=== PATIENT | female | born 1960 | race Caucasian/White ===

== ENCOUNTER 2021-10-08 11:43 | Outpatient (REF) | payer OTHER, SELFPAY | END 2021-10-08 11:44 | disposition home or self-care (01) | LOC: HO.LAB 11:43 | PROVIDERS: PCP Internal Medicine; Visit Provider Internal Medicine | DX: Z20.822 Contact with and (suspected) exposure to COVID-19 (principal) | CPT/HCPCS: C9803; U0003; U0005 ==

== ENCOUNTER 2021-11-11 07:33 | Outpatient (REF) | payer OTHER, SELFPAY ==
--- NOTE | ~2021-11-11 | XR_ITS ---
EXAMINATION: XR CHEST CLINICAL INFORMATION: Shortness of breath. COMPARISON: None TECHNIQUE: 2 views of the chest were obtained. FINDINGS: The lungs are clear. The cardiomediastinal silhouette is normal in size. There is no pleural effusion or pneumothorax. No acute osseous abnormality. XR/XR chest 2V IMPRESSION: No acute cardiopulmonary findings.
--- NOTE | 2021-11-11 08:07 | ECG_ITS ---
Test Reason : chest pain Blood Pressure : / mmHG Vent. Rate : 060 BPM Atrial Rate : 060 BPM P-R Int : 114 ms QRS Dur : 086 ms QT Int : 424 ms P-R-T Axes : 000 148 137 degrees QTc Int : 424 ms Normal sinus rhythm Right axis deviation Abnormal ECG No previous ECGs available Referred By: María Soni Electronically Signed By:
[2021-11-11 10:43] LABS: MANUAL DIFF FLAG NO
[2021-11-11 10:48] LABS: Basophils Absolute Auto 0.1 X10*3/uL (0.0-0.2); Eosinophils Absolute Auto 0.2 X10*3/uL (0.0-0.4); Eosinophils Percent Auto 4.3 % (0-4); Hematocrit 39.1 % (37.0-47.0); Hemoglobin 12.8 g/dl (12.0-16.0); Lymphocytes Absolute Auto 1.6 X10*3/uL (1.2-4.9); Lymphocytes Percent Auto 30.6 % (20-40); Mean Corpuscular HGB Conc 32.7 g/dl (31.0-35.0); Mean Corpuscular Hemoglobin 31.2 pg (27.0-33.0); Mean Corpuscular Volume 95.4 fL (80.0-98.0); Mean Platelet Volume 11.2 fL (9.4-12.3); Monocytes Absolute Auto 0.5 X10*3/uL (0.1-1.2); Monocytes Percent Auto 9.7 % (2-11); Neutrophils Absolute Auto 2.8 x10*3/uL (2.0-8.3); Neutrophils Percent Auto 54.4 % (45-73); Platelet Count 313 X10*3/uL (160-400); Red Cell Distribution Width 12.2 % (11.0-16.0); White Blood Count 5.2 X10*3/uL (4.8-10.8)
[2021-11-11 11:24] LABS: Erythrocyte Sedimentation Rate 18 MM/HR (0-20)
[2021-11-11 11:44] LABS: Alanine Aminotransferase 16 U/L (0-31); Alkaline Phosphatase 63 U/L (39-117); Anion Gap 11 (12-20); Aspartate Amino Transferase 19 U/L (5-31); Bilirubin Total 0.5 mg/dL (0.0-1.0); Blood Urea Nitrogen 13 mg/dL (9-16); C Reactive Protein 0.51 mg/dL (< or = 0.50); Calcium 9.1 mg/dL (8.4-10.2); Carbon Dioxide 29 mmol/L (22-29); Chloride 105 mmol/L (96-108); Cholesterol 218 mg/dL; Estimated Glomerular Filt Rate > 60; Glucose Random 82 mg/dL (60-115); HDL Cholesterol 63 mg/dL; LDL Cholesterol Calculated 142 mg/dl; Potassium 4.7 mmol/L (3.3-5.1); Sodium 140 mmol/L (135-145); Total Protein 6.9 g/dL (6.5-8.0); Triglycerides 69 mg/dL
== END 2021-11-11 07:34 | disposition home or self-care (01) ==
LOC: HO.10HDL 07:33
PROVIDERS: Absent Provider Internal Medicine Cardiovascular Disease; PCP Internal Medicine; Visit Provider Internal Medicine
DX: R07.9 Chest pain, unspecified (principal); R06.02 Shortness of breath; E06.3 Autoimmune thyroiditis; M79.7 Fibromyalgia; K21.9 Gastro-esophageal reflux disease without esophagitis
CPT/HCPCS: 36415; 71046; 80053; 80061; 84443; 85025; 85652; 86140; 93005

== ENCOUNTER 2022-09-22 11:04 | Outpatient (REF) | payer OTHER, SELFPAY ==
[2022-09-22 11:17] LABS: MANUAL DIFF FLAG NO
[2022-09-22 11:42] LABS: Basophils Percent Auto 0.6 % (0-2); Eosinophils Percent Auto 0.6 % (0-4); Hematocrit 39.4 % (37.0-47.0); Hemoglobin 12.7 g/dl (12.0-16.0); Imm Gran Abs Auto 0.01 X10*3/uL (0.00-0.03); Imm Gran Pct Auto 0.2 % (0.0-0.4); Lymphocytes Absolute Auto 1.7 X10*3/uL (1.2-4.9); Lymphocytes Percent Auto 32.9 % (20-40); Mean Corpuscular HGB Conc 32.2 g/dl (31.0-35.0); Mean Corpuscular Hemoglobin 29.8 pg (27.0-33.0); Mean Corpuscular Volume 92.5 fL (80.0-98.0); Mean Platelet Volume 11.1 fL (9.4-12.3); Monocytes Absolute Auto 0.5 X10*3/uL (0.1-1.2); Monocytes Percent Auto 8.8 % (2-11); Neutrophils Percent Auto 56.9 % (45-73); Platelet Count 290 X10*3/uL (160-400); Red Blood Count 4.26 X10*6/uL (4.20-5.50); Red Cell Distribution Width 12.4 % (11.0-16.0); White Blood Count 5.2 X10*3/uL (4.8-10.8)
[2022-09-22 12:21] LABS: Erythrocyte Sedimentation Rate 13 MM/HR (0-20)
[2022-09-22 12:40] LABS: Alanine Aminotransferase 15 U/L (0-31); Albumin Level 4.5 g/dL (3.5-5.0); Alkaline Phosphatase 61 U/L (39-117); Anion Gap 12 (12-20); Aspartate Amino Transferase 20 U/L (5-31); Bilirubin Total 0.8 mg/dL (0.0-1.0); Blood Urea Nitrogen 17 mg/dL (9-16); Calcium 9.1 mg/dL (8.4-10.2); Carbon Dioxide 29 mmol/L (22-29); Chloride 105 mmol/L (96-108); Cholesterol 209 mg/dL; Estimated Glomerular Filt Rate > 60; Free T4 (Free Thyroxine) 1.09 ng/dL (0.71-1.85); Glucose Fasting 79 mg/dL (60-99); HDL Cholesterol 75 mg/dL; LDL Cholesterol Calculated 123 mg/dl; Potassium 4.8 mmol/L (3.3-5.1); Sodium 141 mmol/L (135-145); Thyroid Stimulating Hormone 1.74 uIU/mL (0.32-4.0); Triglycerides 57 mg/dL; Vitamin D 25-OH Total 23.9 ng/mL (>30)
[2022-09-22 13:02] LABS: Folate 7.5 ng/mL (> or = 4.0); Vitamin B12 612 pg/mL (200-900)
[2022-09-23 09:43] LABS: Thyroid Peroxidase Antibodies 1 IU/mL (<9)
[2022-09-23 14:23] LABS: CRP High Sensitivity 6.6 mg/L
[2022-09-23 20:53] LABS: Thyroglobulin Antibodies 1 IU/mL (< or = 1)
== END 2022-09-22 11:05 | disposition home or self-care (01) ==
LOC: HO.LAB 11:04
PROVIDERS: PCP Internal Medicine; Visit Provider Internal Medicine
DX: R20.0 Anesthesia of skin (principal); E55.9 Vitamin D deficiency, unspecified; R25.2 Cramp and spasm; K21.9 Gastro-esophageal reflux disease without esophagitis; E06.3 Autoimmune thyroiditis; E78.5 Hyperlipidemia, unspecified; R07.9 Chest pain, unspecified
CPT/HCPCS: 36415; 80053; 80061; 82306; 82607; 82746; 83735; 84439; 84443; 85025; 85652; 86141; 86376; 86800

== ENCOUNTER → 2022-11-26 14:00 | Outpatient (BNVA) | payer OTHER, SELFPAY | PROVIDERS: PCP Internal Medicine; Visit Provider Nurse Practitioner Family | DX: Z13.89 Encounter for screening for other disorder (principal) ==

== ENCOUNTER 2022-11-30 12:04 | Outpatient (REF) | payer OTHER, SELFPAY ==
[2022-11-30 13:33] LABS: Iron 75 mcg/dL (30-160); Percent Iron Saturation 30 % (15-50); Total Iron Binding Capacity 250 mcg/dL (228-428); Unsaturated Iron Binding 175 ug/dL
[2022-11-30 13:48] LABS: Ferritin 104 ng/mL (10-250)
== END 2022-11-30 12:05 | disposition home or self-care (01) ==
LOC: HO.LAB 12:04
PROVIDERS: PCP Internal Medicine; Visit Provider Nurse Practitioner Family
DX: D64.9 Anemia, unspecified (principal)
CPT/HCPCS: 36415; 82728; 83540

== ENCOUNTER 2022-12-01 08:44 | Outpatient (REF) | payer OTHER, SELFPAY ==
--- NOTE | 2022-12-01 08:45 | EMG_ITS ---
Please see scanned EMG / Nerve Conduction Report. MTDD
--- NOTE | 2022-12-01 08:47 | CA_ITS ---
Acquisition Time: 2022-12-01 09:16:36 Total Exercise Time: 00:09:57 Test Indications: CHESTB PAIN Medications: LINZESS CLORAZAPAM DEXTROAMPHETAMINE Protocol: DEIRDRE Max HR: 151 BPM 94% of Pred: 160 BPM Max BP: 154/068 mmHG Max Work Load: 11.6 METS Exercise stress test with exercise 9 min 57 sec of Deirdre protocol, achieving 94% MPHR, without angnal symptoms, with isolated PVCs, few ventricular cuplets and short run of ventricular bigeminy all noted in recovery, with normotensive response to exercise, without EKG changes meeting criteria for ischemia. Test reviewed with Dr Vásquez. Referred By: María Soni Overread By: AMADO LIU
== END 2022-12-01 08:45 | disposition home or self-care (01) ==
LOC: HO.NEURO 08:44
PROVIDERS: PCP Internal Medicine; Visit Provider Internal Medicine
DX: R20.0 Anesthesia of skin (principal); R07.9 Chest pain, unspecified
CPT/HCPCS: 93017; 95885; 95913

== ENCOUNTER 2022-12-16 15:36 | Outpatient (REF) | payer OTHER, SELFPAY ==
--- NOTE | ~2022-12-16 | XR_ITS ---
EXAMINATION: XR CHEST CLINICAL INFORMATION: Reason for Exam J06.9 - Acute upper respiratory infection, unspecified COMPARISON: Chest radiograph 11/11/2021 TECHNIQUE: 2 views of the chest FINDINGS: Clear lungs. No pneumothorax or pleural effusion. Normal cardiomediastinal silhouette. XR/XR chest 2V IMPRESSION: * Clear lungs.
[2022-12-16 16:44] LABS: Influenza A PCR NEGATIVE (Negative); Influenza B PCR NEGATIVE (Negative); Resp Syncy Virus RNA Qual PCR NEGATIVE (Negative); SARS COV2 PCR INHOUSE NEGATIVE (Negative)
== END 2022-12-16 15:37 | disposition home or self-care (01) ==
LOC: HO.XRAY 15:36
PROVIDERS: PCP Internal Medicine; Visit Provider Internal Medicine
DX: J06.9 Acute upper respiratory infection, unspecified (principal); R09.89 Other specified symptoms and signs involving the circulatory and respiratory systems; Z20.822 Contact with and (suspected) exposure to COVID-19
CPT/HCPCS: 0241U; 71046

== ENCOUNTER 2023-01-06 10:07 | Outpatient (REF) | payer OTHER, SELFPAY ==
--- NOTE | 2023-01-06 10:06 | EMG_ITS ---
Bilateral tibial and peroneal motor studies were performed. Bilateral superficial peroneal and sural sensory studies were performed. Tibial H reflexes were obtained, and needle examination was performed. 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 MD CORINA Rolle/BLAINE / [id number]
== END 2023-01-06 10:08 | disposition home or self-care (01) ==
LOC: HO.NEURO 10:07
PROVIDERS: Visit Provider Internal Medicine
DX: R20.0 Anesthesia of skin (principal)
CPT/HCPCS: 95886; 95911

== ENCOUNTER 2023-02-07 10:02 | Outpatient (REF) | payer OTHER, SELFPAY ==
[2023-02-07 12:55] LABS: Estimated Average Glucose 94 mg/dL; Hemoglobin A1c % 4.9 %
[2023-02-07 13:29] LABS: Erythrocyte Sedimentation Rate 14 MM/HR (0-20)
[2023-02-08 12:09] LABS: Prot Elec - Alpha1 0.3 g/dL (0.2-0.3); Prot Elec - Alpha2 0.8 g/dL (0.5-0.9); Prot Elec - Beta 1 0.4 g/dL (0.4-0.6); Prot Elec - Beta 2 0.4 g/dL (0.2-0.5); Prot Elec - Gamma 1.1 g/dL (0.8-1.7)
[2023-02-08 13:24] LABS: Anti Nuclear Antibody Screen NEGATIVE (NEGATIVE)
[2023-02-10 18:29] LABS: Glutamic acid decarboxylase Ab <5 IU/mL (<5)
== END 2023-02-07 10:03 | disposition home or self-care (01) ==
LOC: HO.LAB 10:02
PROVIDERS: PCP Internal Medicine; Visit Provider Nurse Practitioner Family
DX: G60.8 Other hereditary and idiopathic neuropathies (principal); R20.2 Paresthesia of skin; F90.9 Attention-deficit hyperactivity disorder, unspecified type; G93.5 Compression of brain; R25.2 Cramp and spasm; Z78.0 Asymptomatic menopausal state; Z79.899 Other long term (current) drug therapy
CPT/HCPCS: 36415; 83036; 84165; 85652; 86038; 86039; 86341

== ENCOUNTER 2023-02-10 07:35 | Outpatient (REF) | payer OTHER, SELFPAY ==
[2023-02-15 14:49] LABS: Creatinine, 24Hr Urine 0.84 g/24 h (0.50-2.15); PEU-PROT/CRE Ratio mg/mg 0.095 (<0.150); PEU24-Albumin Urine 100 %; PEU24-Alpha 1 Globulin 0 %; PEU24-Alpha 2 Globulin 0 %; PEU24-Beta Globulin 0 %; PEU24-Gamma Globulin 0 %; Total Protein 24Hr Urine 80 mg/24 h (<150); Total Protein/Creat Ratio 24h 95 mg/g creat (<150)
== END 2023-02-10 07:36 | disposition home or self-care (01) ==
LOC: HO.LNP 07:35
PROVIDERS: Visit Provider Nurse Practitioner Family
DX: G60.8 Other hereditary and idiopathic neuropathies (principal); R25.2 Cramp and spasm; R20.2 Paresthesia of skin
CPT/HCPCS: 82570; 84156; 84166

== ENCOUNTER 2023-05-11 09:42 | Outpatient (AMB) | payer OTHER, SELFPAY ==
[2023-05-11 09:43] VITALS: BP 138/78; PULSE 81; O2SAT 99; BMI 25.6
--- NOTE | 2023-05-11 09:43 | A.OFFVIS_ITS ---
Intake Vital Signs 05/11/23 09:43 Height 5 ft 4 in Weight 149 lb 4 oz BMI 25.6 BP 138/78 Blood Pressure Location Rt brachial Position Sitting Pulse 81 Pulse Source Pulse Oximeter Pulse Oximetry (%) 99 Oxygen Delivery Method Room Air Intake Visit Reasons: 3m follow up - Confirmed Intake Note: Pt presents for a f/u. Pt states things are the same. Pt states The spasms or cramps are worse and keep me up at night and now have them in the daytime Pt is questioning swallowing issues, she doesn't think there is a problem but she is wondering if It is normal? she says i have vertigo but I don't understand that, kind of curious about that. wanted to talk about some of the causes and would like to talk about the treatments. Pt has alot of questions. Is it progressive, is it curable? Pattern Changer And Repairer Required: No Allergies cyclobenzaprine Allergy (Intermediate, Verified 05/11/23 09:50) mental status change Penicillins Allergy (Intermediate, Verified 05/11/23 09:50) upset stomach, headaches mold Allergy (Unknown, Verified 05/11/23 09:50) Unknown Yeast Allergy (Unknown, Verified 05/11/23 09:50) Unknown enviromental Allergy (Mild, Uncoded 05/11/23 09:50) mental status chage dairy Allergy (Unknown, Uncoded 05/11/23 09:50) Unknown Medication List - Last Reconciled 05/11/23 by Geeta Hinds, METER INSTALLER AND REMOVER dextroamphetamine-amphetamine 30 mg (Adderall) 30 mg PO DAILY levalbuterol HCl (Xopenex) 0.31 mg inhalation Q8H HPI HPI Comments History of Present Illness Details 63-yr-old female presents for f/u visit. She reports she is having increased muscle spasms/cramps. This happens in her legs, toes, hands, abdomen. This is most noticeable when laying in bed or sitting still. 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 She may start to see stars in the shower- can be lightheaded. Endorses that sometimes she does not realize how hot the shower is. She continues to have episodes of dizziness and headaches. 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 BUE EMG/NCS- normal. In-lab PSG- [facility] 05/07- AHI 3.6/hr and O2 parth 90%, minimal PLMS PFSH Medical History ADHD Autoimmune thyroiditis Chest pain Chronic GERD Chronic headaches Fibromyalgia JAISON (generalized anxiety disorder) History of squamous cell carcinoma Mild asthma MVP (mitral valve prolapse) Neck pain Short of breath on exertion TMJ (dislocation of temporomandibular joint) Surgical History H/O colonoscopy History of partial hysterectomy History of squamous cell carcinoma History of tubal ligation Family History Father Heart attack Hypercholesteremia Hypertension CHF (congestive heart failure) Mother Hypothyroidism Heart attack Tuberculosis Bladder cancer Breast cancer Pleurisy Sister Hypothyroidism Hypercholesteremia Spinal stenosis Arthritis Asthma Brother Hyperthyroidism Hypertension Hypercholesteremia Sister Hypercholesteremia Daughter Hypertension Hypercholesteremia ADHD Anxiety Myotonia congenita Son Myotonia congenita Son Myotonia congenita Social History (Updated 05/11/23 @ 09:54 by Gwen Keating CMA) Housing: House Alcohol intake: current Alcohol intake frequency: a few times a month Patient Tobacco Use Status: Former Tobacco user Quit Date: 1989 Tobacco use type: Cigarette e-Cigarette/Vaping Use: Never Used Second Hand Smoke Exposure: No service: No Current occupational status: retired Cognitive needs: No Hearing needs: No Vision needs: Yes Review of Systems Const All systems reviewed & are unremarkable except as noted in HPI and below Physical Exam Vital Signs: Last Vital Signs Pulse 81 05/11/23 09:43 BP 138/78 05/11/23 09:43 Pulse Ox 99 05/11/23 09:43 Oxygen Delivery Method Room Air 05/11/23 09:43 BMI result Body Mass Index 25.6 Const General: cooperative and no acute distress Orientation/consciousness: patient oriented x3 HEENT Head: Yes normocephalic Resp Effort & Inspection: normal respiratory effort and able to speak in complete sentences Neuro General: patient oriented x3, gait normal and CN's II-XI intact bilaterally Cognition (Neuro): normal cognition Motor exam (neuro): 5/5 motor strength present throughout Psych Appearance: grossly normal Mental Status: mental status grossly normal Speech and movement: Normal speech and movement present Affect: normal affect Attitude: cooperative Thought process: Normal thought process present Thought content: Normal thought content present Insight: Good insight present (Psych) Judgement: Good judgement present (Psych) Assessment & Plan Assessment & Plan (1) Muscle cramp: Code(s): R25.2 - Cramp and spasm (2) Peripheral sensory-motor axonal polyneuropathy: Code(s): G60.8 - Other hereditary and idiopathic neuropathies (3) Dizziness: Code(s): R42 - Dizziness and giddiness (4) Headache: Code(s): R51.9 - Headache, unspecified Plan Reviewed neuropathy dx- reviewed lab work-up results unremarkable. Trial Magnesium 400mg qhs- monitor effect on cramps, restlessness. May try OTC tx's- such as small amts pickle juice. I would avoid Mexieitine at this point- this medication carries significant CV black box warning. Pt advised to try vestibular tx- she will reach out to her usual PT provider to see if they a a PT specializing in vestibular tx. Drink a full glass of water beofre showers and avoid hot showers. Future considerations- iron supplementation, TCAs, dopamine agonist, initiating headcahe tx, referal to neuropathy clinic. Orders: Orders PT Evaluation and Treatment Today R42 - Dizziness and giddiness Medications: New magnesium oxide may hold for loose stools 400 mg PO BEDTIME 30 tabs 6RF 30 days Coding Level of Care Code Est Pt Level 4 (21106) Diagnoses Muscle cramp R25.2 Peripheral sensory-motor axonal polyneuropathy G60.8 Dizziness R42 Headache R51.9
== END 2023-05-11 10:42 | disposition home or self-care (01) ==
PROVIDERS: Visit Provider Nurse Practitioner Family
DX: R25.2 Cramp and spasm (principal); G60.8 Other hereditary and idiopathic neuropathies; R42 Dizziness and giddiness; R51.9 Headache, unspecified
CPT/HCPCS: 99214

== ENCOUNTER → 2023-05-11 09:42 | Outpatient (BNVA) | payer OTHER, SELFPAY | PROVIDERS: Visit Provider Nurse Practitioner Family ==

== ENCOUNTER 2023-08-23 11:35 | Outpatient (AMB) | payer OTHER, SELFPAY ==
--- NOTE | 2023-08-23 11:34 | A.OFFVIS_ITS ---
Intake Vital Signs 08/23/23 11:35 Height 5 ft 4 in Weight 151 lb BMI 25.9 BP 138/88 Blood Pressure Location Rt brachial Position Sitting Intake Visit Reasons: 3m follow up anesthesia of skin-LVM Intake Note: Patient presents for 3 month follow up. Patient states when I was at PT my whole chin went totally numb,I'm seeing stars more brighter and now I see them in front of me, I'm also having neck issues. Allergies cyclobenzaprine Allergy (Intermediate, Verified 08/23/23 11:40) mental status change Penicillins Allergy (Intermediate, Verified 08/23/23 11:40) upset stomach, headaches mold Allergy (Unknown, Verified 08/23/23 11:40) Unknown Yeast Allergy (Unknown, Verified 08/23/23 11:40) Unknown enviromental Allergy (Mild, Uncoded 08/23/23 11:40) mental status chage dairy Allergy (Unknown, Uncoded 08/23/23 11:40) Unknown Medication List - Last Reconciled 08/23/23 by KELLE Cervantes dextroamphetamine-amphetamine 30 mg (Adderall) 30 mg PO DAILY levalbuterol HCl (Xopenex) 0.31 mg inhalation Q8H magnesium oxide 400 mg PO BEDTIME 30 days HPI HPI Comments History of Present Illness Details 63-yr-old female presents for f/u visit. Today, pt reports that she is having increased head discomfort. She reports her head feels full. She feels her frontal and temporal region feel full and painful to touch. She has difficulty quantifying her headaches. She has had a bout that was more severe. She is seeing more aura- seeing stars in front of her. Today, this happened when showering, but she denies any associated lightheadedness. The stars are tr iggered by turning her neck, but only when in the shower. The stars are not a/w the headache. Pt states she had an episode where all of a sudden her jaw (maybe left sided) went numb. She has had milder episodes of left jaw numbness- like she has Novocaine that is wearing off. Her tongue and mouth are often numb. She feels more forgetful, sometimes spaces out. She is compliant w/ Adderral, which is helpful. [facility] Medical History (Updated 08/28/23 @ 22:52 by KELLE Cervantes) MVP (mitral valve prolapse) Chronic headaches Neck pain Short of breath on exertion Chest pain History of squamous cell carcinoma ADHD TMJ (dislocation of temporomandibular joint) Fibromyalgia Mild asthma JAISON (generalized anxiety disorder) Chronic GERD Surgical History H/O colonoscopy History of squamous cell carcinoma History of partial hysterectomy History of tubal ligation Family History Father Heart attack Hypercholesteremia Hypertension CHF (congestive heart failure) Mother Hypothyroidism Heart attack Tuberculosis Bladder cancer Breast cancer Pleurisy Sister Hypothyroidism Hypercholesteremia Spinal stenosis Arthritis Asthma Brother Hyperthyroidism Hypertension Hypercholesteremia Sister Hypercholesteremia Daughter Hypertension Hypercholesteremia ADHD Anxiety Myotonia congenita Son Myotonia congenita Son Myotonia congenita Social History Housing: House Alcohol intake: current Alcohol intake frequency: a few times a month Patient Tobacco Use Status: Former Tobacco user Quit Date: 1989 Tobacco use type: Cigarette e-Cigarette/Vaping Use: Never Used Second Hand Smoke Exposure: No service: No Current occupational status: retired Cognitive needs: No Hearing needs: No Vision needs: Yes Review of Systems Const All systems reviewed & are unremarkable except as noted in HPI and below Physical Exam Vital Signs: Last Vital Signs BP 138/88 08/23/23 11:35 BMI result Body Mass Index 25.9 Const General: cooperative and no acute distress Orientation/consciousness: patient oriented x3 HEENT Head: Yes normocephalic Resp Effort & Inspection: normal respiratory effort and able to speak in complete sentences Neuro General: patient oriented x3, gait normal and CN's II-XI intact bilaterally Cognition (Neuro): normal cognition Motor exam (neuro): 5/5 motor strength present throughout Psych Appearance: grossly normal Mental Status: mental status grossly normal Speech and movement: Normal speech and movement present Affect: normal affect Attitude: cooperative Thought process: Normal thought process present Thought content: Normal thought content present Insight: Good insight present (Psych) Judgement: Good judgement present (Psych) Assessment & Plan Assessment & Plan (1) Visual aura: Code(s): H53.9 - Unspecified visual disturbance (2) Headache: Code(s): R51.9 - Headache, unspecified (3) Dizziness: Code(s): R42 - Dizziness and giddiness (4) Paresthesia: Code(s): R20.2 - Paresthesia of skin Plan Pt advised to undergo head/neck CTA- to assess for cervical and intracranial arterial etiologies of pt's s/s of lightheadedness, dizziness, and seeing stars triggered by cervical rotation and especially triggered when taking a shower. Check ESR, CRP, TSH today Trial Sumatriptan 50mg prn. F/u in 3-4 months or sooner prn Addendum: 08/23/23: CRP- 8.27 H ESR- 6 NL TSH- 2.26 NL Labs reviewed, will check lipid panel. Orders: Orders Erythrocyte Sedimentation Rate 08/23/23 H53.9 - Unspecified visual disturbance, R20.2 - Paresthesia of skin, R51.9 - Headache, unspecified Comprehensive Met. Panel Today R42 - Dizziness and giddiness, R51.9 - Headache, unspecified, R79.82 - Elevated C-reactive protein (CRP) CT angio head neck 08/23/23 H53.9 - Unspecified visual disturbance, R20.2 - Paresthesia of skin, R42 - Dizziness and giddiness, R51.9 - Headache, unspecified TSH reflex Free T4 08/23/23 E06.3 - Autoimmune thyroiditis CRP High Sensitivity 08/23/23 H53.9 - Unspecified visual disturbance, R20.2 - Paresthesia of skin, R51.9 - Headache, unspecified Complete Blood Count Auto Diff Today R42 - Dizziness and giddiness, R51.9 - Headache, unspecified, R79.82 - Elevated C-reactive protein (CRP) Lipid Panel with Reflex Today R42 - Dizziness and giddiness, R51.9 - Headache, unspecified, R79.82 - Elevated C-reactive protein (CRP) Medications: New sumatriptan succinate take 1 tab at onset of headache; if no relief may repeat 1 tab after at least 2 hrs; max = 4 tabs/24 hr orally PRN; 30 days 12 tabs 3RF migraine headache Coding Level of Care Code Est Pt Level 4 (86022) Diagnoses Visual aura H53.9 Headache R51.9 Dizziness R42 Paresthesia R20.2
[2023-08-23 11:35] VITALS: BP 138/88; BMI 25.9
== END 2023-08-23 12:23 | disposition home or self-care (01) ==
PROVIDERS: PCP Internal Medicine; Visit Provider Nurse Practitioner Family
DX: H53.9 Unspecified visual disturbance (principal); R51.9 Headache, unspecified; R42 Dizziness and giddiness; R20.2 Paresthesia of skin
CPT/HCPCS: 99214

== ENCOUNTER → 2023-08-23 11:35 | Outpatient (BNVA) | payer OTHER, SELFPAY | PROVIDERS: PCP Internal Medicine; Visit Provider Nurse Practitioner Family ==

== ENCOUNTER 2023-09-12 09:14 | Outpatient (REF) | payer OTHER, SELFPAY ==
[2023-09-12 09:39] LABS: MANUAL DIFF FLAG NO
[2023-09-12 10:28] LABS: Basophils Percent Auto 0.8 % (0-2); Eosinophils Absolute Auto 0.1 X10*3/uL (0.0-0.4); Eosinophils Percent Auto 1.5 % (0-4); Hematocrit 41.3 % (37.0-47.0); Hemoglobin 13.4 g/dl (12.0-16.0); Imm Gran Abs Auto 0.01 X10*3/uL (0.00-0.03); Imm Gran Pct Auto 0.2 % (0.0-0.4); Lymphocytes Absolute Auto 1.9 X10*3/uL (1.2-4.9); Lymphocytes Percent Auto 35.2 % (20-40); Mean Corpuscular HGB Conc 32.4 g/dl (31.0-35.0); Mean Corpuscular Hemoglobin 30.5 pg (27.0-33.0); Mean Corpuscular Volume 94.1 fL (80.0-98.0); Mean Platelet Volume 10.7 fL (9.4-12.3); Monocytes Absolute Auto 0.4 X10*3/uL (0.1-1.2); Monocytes Percent Auto 8.2 % (2-11); Neutrophils Absolute Auto 2.8 x10*3/uL (2.0-8.3); Neutrophils Percent Auto 54.1 % (45-73); Platelet Count 296 X10*3/uL (160-400); Red Blood Count 4.39 X10*6/uL (4.20-5.50); Red Cell Distribution Width 12.6 % (11.0-16.0); White Blood Count 5.3 X10*3/uL (4.8-10.8)
[2023-09-12 11:16] LABS: Cholesterol 203 mg/dL (<200); HDL Cholesterol 80 mg/dL (>40); LDL Cholesterol Calculated 113 mg/dL (<100); Triglycerides 52 mg/dL (<150)
[2023-09-12 11:20] LABS: Erythrocyte Sedimentation Rate 10 MM/HR (0-20)
[2023-09-12 11:25] LABS: Alanine Aminotransferase 19 U/L (0-31); Albumin Level 4.4 g/dL (3.5-5.0); Alkaline Phosphatase 58 U/L (39-117); Anion Gap 12 (12-20); Aspartate Amino Transferase 20 U/L (5-31); Bilirubin Total 0.5 mg/dL (0.0-1.0); Blood Urea Nitrogen 16 mg/dL (9-16); Carbon Dioxide 27 mmol/L (22-29); Chloride 105 mmol/L (96-108); Estimated Glomerular Filt Rate > 60; Glucose Random 85 mg/dL (60-115); Potassium 4.3 mmol/L (3.3-5.1); Sodium 140 mmol/L (135-145); Total Protein 7.4 g/dL (6.5-8.0)
[2023-09-12 11:29] LABS: TSH reflex Free T4 2.11 uIU/mL (0.32-4.0)
[2023-09-12 11:44] LABS: Reflex LDLD? No
[2023-09-13 17:18] LABS: CRP High Sensitivity 5.9 mg/L
[2023-09-15 18:58] LABS: Acetylcholine Recept. Blocking <15 (<15)
[2023-09-16 03:28] LABS: Acetylcholine Receptor Binding <0.30 nmol/L
[2023-09-21 17:39] LABS: Acetylcholine Recep Modulating 30
== END 2023-09-12 09:15 | disposition home or self-care (01) ==
LOC: HO.LAB 09:14
PROVIDERS: PCP Internal Medicine; Visit Provider Nurse Practitioner Family
DX: R51.9 Headache, unspecified (principal); R42 Dizziness and giddiness; R79.82 Elevated C-reactive protein (CRP); H53.9 Unspecified visual disturbance; R20.2 Paresthesia of skin; R53.1 Weakness; R06.02 Shortness of breath; E06.3 Autoimmune thyroiditis
CPT/HCPCS: 36415; 80053; 80061; 83519; 84443; 85025; 85652; 86141

== ENCOUNTER 2023-09-29 16:09 | Outpatient (REF) | payer OTHER, SELFPAY ==
[2023-09-29 18:18] LABS: Magnesium 2.2 mg/dL (1.6-2.6)
== END 2023-09-29 16:10 | disposition home or self-care (01) ==
LOC: HO.LAB 16:09
PROVIDERS: Visit Provider Nurse Practitioner Family
DX: R25.2 Cramp and spasm (principal)
CPT/HCPCS: 36415; 82550; 83735

== ENCOUNTER 2023-10-05 08:04 | Outpatient (REF) | payer OTHER, SELFPAY ==
--- NOTE | ~2023-10-05 | CT_ITS ---
EXAMINATION: CT angio head neck CLINICAL INFORMATION: Dizziness. COMPARISON: No relevant prior imaging. TECHNIQUE: Head [employer] images were obtained. A CT angiogram of the head and neck was performed in the arterial phase after the intravenous administration of 70 mL Omnipaque 350. Pre and delayed postcontrast images of the head were also obtained. 3D images were processed on an independent workstation under concurrent supervision. Arterial stenoses are measured in accordance with NASCET criteria or similar method if applicable. This CT examination was performed using dose optimization techniques as appropriate, including one or more of the following: Automated exposure control, iterative reconstruction, and adjustment of technique factors (mA and/or kVp) according to patient size (this includes techniques or standardized protocols for targeted exams where dose is matched to indication/reason for exam). Fleischner Society criteria for the followup of incidental pulmonary nodules was implemented if appropriate. Total exam dose-length product 2054 mGy-cm FINDINGS: Head: There is no acute intracranial hemorrhage or abnormal extra-axial collection. Postcontrast images reveal no abnormal intracranial mass or enhancement. No intracranial mass effect or midline shift. Lateral and third ventricles are normal. No hydrocephalus. Potts-white matter differentiation is preserved and there is no evidence of acute territorial infarct. The calvarium and skull base are intact. Mastoid air cells and middle ear cavities are well aerated. No active paranasal sinus disease. CT angiogram neck: The aortic arch apex is normal. Origins of major aortic branches are widely patent. Common carotid arteries and carotid bifurcations are normal. There is a slightly deviated irregular contour involving the right internal carotid artery along its midportion best visualized on axial image 286 of 562 series 13. Intracranial internal carotid arteries are otherwise patent. The cervical segments of the vertebral arteries are patent. CT angiogram head: Intracranial internal carotid arteries are normal. The intradural vertebral artery segments and basilar artery are normal. Anterior, middle, and posterior cerebral complexes are normal. No intracranial large vessel occlusion. No identifiable aneurysm or high flow vascular lesion. The timing of the contrast injection provides adequate opacification of the dural venous sinuses which are patent. Other: Soft tissues of the neck including the thyroid gland are normal. There is pleural-parenchymal scarring at the apices of both lungs. There are a few small nonspecific pulmonary nodule at the apex of the right lung, the largest of which measures 3.5 mm in diameter best visualized on axial image 488 of series 13. Grossly no pathologically enlarged cervical lymph nodes. No acute osseous finding. Specifically no worrisome lytic or blastic osseous lesion. CT/CT angio head neck IMPRESSION: There is a slightly deviated and irregular contour involving the right internal carotid artery along its midportion. This finding may represent a manifestation of fibromuscular dysplasia. Otherwise unremarkable CT angiogram of the head and neck. No stenosis of the cervical carotid or vertebral arteries. No intracranial large vessel occlusion. No evidence of acute territorial infarct or hemorrhage. No abnormal intracranial mass or enhancement. There are a few small nonspecific pulmonary nodules at the apex of the right lung, the largest of which measures 3.5 mm in diameter. According to the UPDATED 2017 Fleischner Society recommendations, the advised follow-up imaging for nodules <6mm in the upper lobes is not necessarily required in low-risk patients. In high-risk patients with a nodule in the upper lobe and/or demonstrating suspicious morphology, an optional CT follow-up at 12 months may be obtained. If stable at 12 months, no further follow-up is recommended.
[2023-10-05] MEDS: iohexoL 350 MG/ML 100 ML INFUS..BTL IV (09:04)
== END 2023-10-05 08:05 | disposition home or self-care (01) ==
LOC: HO.CT 08:04
PROVIDERS: PCP Internal Medicine; Visit Provider Nurse Practitioner Family
DX: R42 Dizziness and giddiness (principal); R51.9 Headache, unspecified; R20.2 Paresthesia of skin; H53.9 Unspecified visual disturbance
CPT/HCPCS: 70496; 70498; Q9967

== ENCOUNTER 2023-10-07 09:06 | Outpatient (REF) | payer OTHER, SELFPAY ==
--- NOTE | 2023-10-07 09:08 | EMG_ITS ---
Chief complaint: Chronic headaches, neck pain/stiffness, hand numbness, fatigue Reason for referral: Evaluate for neuropathy Previous EMG bilateral upper extremities done by Dr. Rivas last November 2022 was normal. Referred by: Tracie Hinds NP Procedure done: Bilateral upper extremities NCS/EMG Precautions and/or limitations: None The limb temperature was monitored continuously and remained between 32-36 degrees C during the performance of the NCS. Nerve Conduction Studies Anti Sensory Summary Table ?Stim Site NR Onset (ms) Norm Onset (ms) Peak (ms) Norm Peak (ms) O-P Amp (?V) Norm O-P Amp Site1 Site2 Delta-0 (ms) Dist (cm) Rony (m/s) Norm Rony (m/s) Left Median Anti Sensory (2nd Digit) Wrist ? 2.7 3.6 <3.6 51.6 >10 Wrist 2nd Digit 2.7 14.0 52 Right Median Anti Sensory (2nd Digit) Wrist ? 2.9 3.6 <3.6 48.4 >10 Wrist 2nd Digit 2.9 14.0 48 Right Radial Anti Sensory (Thumb) Forearm ? 1.5 2.1 <3.1 37.9 Forearm Thumb 1.5 0.0 Left Ulnar Anti Sensory (5th Digit) Wrist ? 2.2 3.2 <3.7 41.0 >15.0 Wrist 5th Digit 2.2 14.0 64 Right Ulnar Anti Sensory (5th Digit) Wrist ? 2.7 3.7 <3.7 32.3 >15.0 Wrist 5th Digit 2.7 14.0 52 Motor Summary Table ?Stim Site NR Onset (ms) Norm Onset (ms) O-P Amp (mV) Norm O-P Amp iAmp (mV) Amp (1st) (%) Site1 Site2 Delta-0 (ms) Dist (cm) Rony (m/s) Norm Rony (m/s) Left Median Motor (Abd Poll Brev) Wrist ? 3.4 <3.9 10.7 >4.5 13.0 100.0 Elbow Wrist 3.2 19.0 59 >45 Elbow ? 6.6 10.4 12.8 97.2 Right Median Motor (Abd Poll Brev) Wrist ? 3.7 <3.9 10.6 >4.5 13.4 100.0 Elbow Wrist 3.6 20.0 56 >45 Elbow ? 7.3 11.8 14.6 111.3 Left Ulnar Motor (Abd Dig Minimi) Wrist ? 3.0 <3.0 6.9 >5 8.7 100.0 B Elbow Wrist 3.0 18.0 60 >45 B Elbow ? 6.0 7.2 8.9 104.3 A Elbow B Elbow 1.3 10.0 77 >45 A Elbow ? 7.3 6.7 8.4 97.1 Right Ulnar Motor (Abd Dig Minimi) Wrist ? 2.4 <3.0 10.7 >5 11.9 100.0 B Elbow Wrist 3.5 19.0 54 >45 B Elbow ? 5.9 10.3 11.5 96.3 A Elbow B Elbow 1.4 10.0 71 >45 A Elbow ? 7.3 10.1 11.2 94.4 EMG ?Side Muscle Nerve Root Ins Act Fibs Psw Amp Dur Poly Recrt Int Pat Comment Right 1stDorInt Ulnar C8-T1 Nml Nml Nml Nml Nml 0 Nml Complete Right FlexCarRad Median C6-7 Nml Nml Nml Nml Nml 0 Nml Complete Right Biceps Musculocut C5-6 Nml Nml Nml Nml Nml 0 Nml Complete Right Triceps Radial C6-7-8 Nml Nml Nml Nml Nml 0 Nml Complete Right Deltoid Axillary C5-6 Nml Nml Nml Nml Nml 0 Nml Complete Left 1stDorInt Ulnar C8-T1 Nml Nml Nml Nml Nml 0 Nml Complete Left FlexCarRad Median C6-7 Nml Nml Nml Nml Nml 0 Nml Complete Left Biceps Musculocut C5-6 Nml Nml Nml Nml Nml 0 Nml Complete Left Triceps Radial C6-7-8 Nml Nml Nml Nml Nml 0 Nml Complete Left Deltoid Axillary C5-6 Nml Nml Nml Nml Nml 0 Nml Complete Paraspinal EMG ?Side Muscle Nerve Root Ins Act Fibs Psw Comment Right Cervical Upper Rami Nml Nml Nml Right Cervical Mid Rami Nml Nml Nml Right Cervical Lower Rami Nml Nml Nml Left Cervical Upper Rami Nml Nml Nml Left Cervical Mid Rami Nml Nml Nml Left Cervical Lower Rami Nml Nml Nml FINDINGS: All motor and sensory nerves tested showed normal latencies, amplitudes and conduction velocities. Concentric needle EMG was performed in selected muscles of the bilateral upper extremities and cervical paraspinals. Study did not reveal signs of electric abnormalities as shown in the table below. IMPRESSION: 1. This is a normal study. 2. There is no electrodiagnostic evidence for median neuropathy, ulnar neuropathy, brachial plexopathy, or cervical radiculopathy. Thank you for your kind referral. Munira Roberts MD, KETAN Board Certified, [place] [employer] and [employer] (ABPMR) Board Certified, [place] Board of Electrodiagnostic Medicine (ABEM) CODIN 60028 x 2 MTDD
== END 2023-10-07 09:07 | disposition home or self-care (01) ==
LOC: HO.NEURO 09:06
PROVIDERS: PCP Internal Medicine; Visit Provider Nurse Practitioner Family
DX: R20.2 Paresthesia of skin (principal); G60.8 Other hereditary and idiopathic neuropathies; M62.81 Muscle weakness (generalized)
CPT/HCPCS: 95886; 95911

== ENCOUNTER → 2023-10-07 09:08 | Outpatient (BNV) | payer OTHER, SELFPAY | PROVIDERS: PCP Internal Medicine; Visit Provider Physical Medicine & Rehabilitation | DX: M54.2 Cervicalgia (principal); R20.0 Anesthesia of skin | CPT/HCPCS: 95886; 95911 ==

== ENCOUNTER 2023-12-15 08:47 | Outpatient (AMB) | payer OTHER, SELFPAY ==
--- NOTE | 2023-12-15 08:48 | MHC.OFFVIS ---
Intake Intake Visit Reasons: 3 mnts f/u appt-Confirmed Intake Note: Patient following up no concerns just bloating and weight gain Allergies cyclobenzaprine Allergy (Intermediate, Verified 12/15/23 08:48) mental status change Penicillins Allergy (Intermediate, Verified 12/15/23 08:48) upset stomach, headaches mold Allergy (Unknown, Verified 12/15/23 08:48) Unknown Yeast Allergy (Unknown, Verified 12/15/23 08:48) Unknown enviromental Allergy (Mild, Uncoded 12/15/23 08:48) mental status chage dairy Allergy (Unknown, Uncoded 12/15/23 08:48) Unknown Medication List - Last Reconciled 12/15/23 by KELLE Cervantes dextroamphetamine-amphetamine 30 mg (Adderall) 30 mg PO DAILY levalbuterol HCl (Xopenex) 0.31 mg inhalation Q8H magnesium oxide 400 mg PO BEDTIME 30 days propranolol ER 60 mg PO BEDTIME 30 days sumatriptan succinate take 1 tab at onset of headache; if no relief may repeat 1 tab after at least 2 hrs; max = 4 tabs/24 hr orally PRN; 30 days HPI HPI Comments History of Present Illness Details 63-yr-old female presents for f/u televideo visit via [employer]. Pt denies any significant interval medical changes. Pt continues to have many symptoms, which she feels she cannot explain. She has headache,seeing stars, forgetfulness She often feels like she cannot take a deep breathe, cannot catch her breathe- this happens at rest. has a h/o asthma- states she was discharged form her previous pulmonologists office. Pt did not tolerate Propranolol, caused palpitations and she could not sleep well. Head/Neck CTA: CT/CT angio head neck IMPRESSION: There is a slightly deviated and irregular contour involving the right internal carotid artery along its midportion. This finding may represent a manifestation of fibromuscular dysplasia. Otherwise unremarkable CT angiogram of the head and neck. No stenosis of the cervical carotid or vertebral arteries. No intracranial large vessel occlusion. No evidence of acute territorial infarct or hemorrhage. No abnormal intracranial mass or enhancement. [facility] Medical History (Updated 12/15/23 @ 09:58 by KELLE Cervantes) MVP (mitral valve prolapse) Chronic headaches Neck pain Short of breath on exertion Chest pain History of squamous cell carcinoma ADHD TMJ (dislocation of temporomandibular joint) Fibromyalgia Mild asthma JAISON (generalized anxiety disorder) Chronic GERD Surgical History H/O colonoscopy History of squamous cell carcinoma History of partial hysterectomy History of tubal ligation Family History Father Heart attack Hypercholesteremia Hypertension CHF (congestive heart failure) Mother Hypothyroidism Heart attack Tuberculosis Bladder cancer Breast cancer Pleurisy Sister Hypothyroidism Hypercholesteremia Spinal stenosis Arthritis Asthma Brother Hyperthyroidism Hypertension Hypercholesteremia Sister Hypercholesteremia Daughter Hypertension Hypercholesteremia ADHD Anxiety Myotonia congenita Son Myotonia congenita Son Myotonia congenita Social History Housing: House Alcohol intake: current Alcohol intake frequency: a few times a month Patient Tobacco Use Status: Former Tobacco user Quit Date: 1989 Tobacco use type: Cigarette e-Cigarette/Vaping Use: Never Used Second Hand Smoke Exposure: No service: No Current occupational status: retired Cognitive needs: No Hearing needs: No Vision needs: Yes Physical Exam Const General: cooperative and no acute distress Orientation/consciousness: patient oriented x3 Resp Effort & Inspection: normal respiratory effort and able to speak in complete sentences Neuro General: patient oriented x3 Cognition (Neuro): normal cognition Psych Appearance: grossly normal Mental Status: mental status grossly normal Speech and movement: Normal speech and movement present Affect: normal affect Attitude: cooperative Assessment & Plan Assessment & Plan (1) Headache: Code(s): R51.9 - Headache, unspecified (2) Abnormal computed tomography angiography (CTA) of neck: Code(s): R93.89 - Abnormal findings on diagnostic imaging of other specified body structures (3) Dyspnea: Comment: at rest, intermittent Code(s): R06.00 - Dyspnea, unspecified Plan Reviewed Head/Neck CTA: results notable for: -slightly deviated and irregular contour involving the right internal carotid artery along its midportion, which may represent a manifestation of fibromuscular dysplasia. -pleural-parenchymal scarring at the apices of both lungs, and a few small nonspecific pulmonary nodules at the apex of the right lung, the largest of which measures 3.5 mm Will take the liberty of referring pt for pulomonology consult- to eval asthma, pulmonary nodules and pleaural-parenchymal scarring seen on Neck CTA. Also will refer back to pt's vascular surgeon to eval the right ICA findings possibly showing fibromucular dysplasia. Check labs. ? Sumatriptan 50mg prn. ? F/u in 3-4 months or sooner prn Orders: Orders [facility] J45.909 - Unspecified asthma, uncomplicated, R06.00 - Dyspnea, unspecified, R20.2 - Paresthesia of skin, R42 - Dizziness and giddiness, R51.9 - Headache, unspecified, R53.1 - Weakness, R79.82 - Elevated C-reactive protein (CRP) CRP High Sensitivity 12/15/23 J45.909 - Unspecified asthma, uncomplicated, R06.00 - Dyspnea, unspecified, R20.2 - Paresthesia of skin, R42 - Dizziness and giddiness, R51.9 - Headache, unspecified, R53.1 - Weakness, R79.82 - Elevated C-reactive protein (CRP) Complete Blood Count Auto Diff 12/15/23 J45.909 - Unspecified asthma, uncomplicated, R06.00 - Dyspnea, unspecified, R20.2 - Paresthesia of skin, R42 - Dizziness and giddiness, R51.9 - Headache, unspecified, R53.1 - Weakness, R79.82 - Elevated C-reactive protein (CRP) Rheumatoid Factor 12/15/23 J45.909 - Unspecified asthma, uncomplicated, R06.00 - Dyspnea, unspecified, R20.2 - Paresthesia of skin, R42 - Dizziness and giddiness, R51.9 - Headache, unspecified, R53.1 - Weakness, R79.82 - Elevated C-reactive protein (CRP) SEBASTIEN Reflex Titer and Pattern 12/15/23 J45.909 - Unspecified asthma, uncomplicated, R06.00 - Dyspnea, unspecified, R20.2 - Paresthesia of skin, R42 - Dizziness and giddiness, R51.9 - Headache, unspecified, R53.1 - Weakness, R79.82 - Elevated C-reactive protein (CRP) Erythrocyte Sedimentation Rate 12/15/23 J45.909 - Unspecified asthma, uncomplicated, R06.00 - Dyspnea, unspecified, R20.2 - Paresthesia of skin, R42 - Dizziness and giddiness, R51.9 - Headache, unspecified, R53.1 - Weakness, R79.82 - Elevated C-reactive protein (CRP) Comprehensive Met. Panel 12/15/23 J45.909 - Unspecified asthma, uncomplicated, R06.00 - Dyspnea, unspecified, R20.2 - Paresthesia of skin, R42 - Dizziness and giddiness, R51.9 - Headache, unspecified, R53.1 - Weakness, R79.82 - Elevated C-reactive protein (CRP) Referrals Vascular Surgery Referral R93.89 - Abnormal findings on diagnostic imaging of other specified body structures Pulmonary Medicine Referral J45.909 - Unspecified asthma, uncomplicated, R06.00 - Dyspnea, unspecified, R91.1 - Solitary pulmonary nodule Telehealth Telehealth Location of provider rendering services: practice address Location of patient: address on file Patient Identification confirmed using: Name, : Yes Telehealth method: video Patient verbally consented to treatment: Yes Patient verbally consented to billing insurance company: Yes Patient informed of any privacy concerns related to visit: Yes Minutes spent on Phone/Video with Pt.: 25 Coding Level of Care Code Tele Est Pt Level 4 (65197) Diagnoses Headache R51.9 Abnormal computed tomography angiography (CTA) of neck R93.89 Dyspnea R06.00
== END 2023-12-15 14:23 | disposition home or self-care (01) ==
LOC: HO.HSMS 08:47
PROVIDERS: PCP Internal Medicine; Visit Provider Nurse Practitioner Family
DX: R51.9 Headache, unspecified (principal); R93.89 Abnormal findings on diagnostic imaging of other specified body structures; R06.00 Dyspnea, unspecified
CPT/HCPCS: 99214

== ENCOUNTER 2023-12-15 08:47 | Outpatient (REF) | payer OTHER, SELFPAY ==
[2023-12-15 17:30] LABS: MANUAL DIFF FLAG NO
[2023-12-15 17:38] LABS: Basophils Absolute Auto 0.1 X10*3/uL (0.0-0.2); Basophils Percent Auto 0.6 % (0-2); Eosinophils Absolute Auto 0.1 X10*3/uL (0.0-0.4); Eosinophils Percent Auto 0.7 % (0-4); Hematocrit 42.2 % (37.0-47.0); Hemoglobin 13.7 g/dl (12.0-16.0); Imm Gran Abs Auto 0.02 X10*3/uL (0.00-0.03); Imm Gran Pct Auto 0.2 % (0.0-0.4); Lymphocytes Percent Auto 23.4 % (20-40); Mean Corpuscular HGB Conc 32.5 g/dl (31.0-35.0); Mean Corpuscular Volume 92.3 fL (80.0-98.0); Mean Platelet Volume 10.7 fL (9.4-12.3); Monocytes Absolute Auto 0.5 X10*3/uL (0.1-1.2); Monocytes Percent Auto 6.3 % (2-11); Neutrophils Percent Auto 68.8 % (45-73); Platelet Count 294 X10*3/uL (160-400); Red Blood Count 4.57 X10*6/uL (4.20-5.50); Red Cell Distribution Width 12.7 % (11.0-16.0); White Blood Count 8.6 X10*3/uL (4.8-10.8)
[2023-12-15 18:11] LABS: Alanine Aminotransferase 23 U/L (0-31); Albumin Level 4.5 g/dL (3.5-5.0); Alkaline Phosphatase 80 U/L (39-117); Anion Gap 11 (12-20); Aspartate Amino Transferase 24 U/L (5-31); Bilirubin Total 0.4 mg/dL (0.0-1.0); Blood Urea Nitrogen 18 mg/dL (9-16); Calcium 8.9 mg/dL (8.4-10.2); Carbon Dioxide 29 mmol/L (22-29); Chloride 106 mmol/L (96-108); Estimated Glomerular Filt Rate > 60; Glucose Random 98 mg/dL (60-115); Potassium 4.3 mmol/L (3.3-5.1); Rheumatoid Factor < 13.0 IU/mL (<15.0); Sodium 142 mmol/L (135-145); Total Protein 7.8 g/dL (6.5-8.0)
[2023-12-15 18:21] LABS: Erythrocyte Sedimentation Rate 13 MM/HR (0-20)
[2023-12-16 19:42] LABS: CRP High Sensitivity 4.9 mg/L
[2023-12-21 15:24] LABS: Anti Nuclear Antibody Screen NEGATIVE (NEGATIVE)
== END 2023-12-15 08:48 | disposition home or self-care (01) ==
LOC: HO.LAB 08:47
PROVIDERS: PCP Nurse Practitioner Primary Care; Visit Provider Nurse Practitioner Family
DX: R51.9 Headache, unspecified (principal); R42 Dizziness and giddiness; R53.1 Weakness; R06.00 Dyspnea, unspecified; J45.909 Unspecified asthma, uncomplicated; R79.82 Elevated C-reactive protein (CRP); R20.2 Paresthesia of skin
CPT/HCPCS: 80053; 82164; 85025; 85652; 86038; 86141; 86431

== ENCOUNTER 2023-12-21 08:59 | Outpatient (AMB) | payer OTHER, SELFPAY ==
--- NOTE | 2023-12-21 08:55 | MHC.OFFVIS ---
Intake Vital Signs 12/21/23 09:05 Height 5 ft 4 in Weight 156 lb BMI 26.8 BP 124/70 Blood Pressure Location Rt brachial Position Sitting Pulse 70 Pulse Source Pulse Oximeter Pulse Oximetry (%) 100 Oxygen Delivery Method Room Air Intake Visit Reasons: Solitary pulmonary nodule Hat Brim Curler Required: No Pharmaceutical Representative: Pharmaceutical Representative offered & declined Accompanied by: Self / Same As Patient Allergies cyclobenzaprine Allergy (Intermediate, Verified 12/21/23 09:10) mental status change Penicillins Allergy (Intermediate, Verified 12/21/23 09:10) upset stomach, headaches mold Allergy (Unknown, Verified 12/21/23 09:10) Unknown Yeast Allergy (Unknown, Verified 12/21/23 09:10) Unknown enviromental Allergy (Mild, Uncoded 12/21/23 09:10) mental status chage dairy Allergy (Unknown, Uncoded 12/21/23 09:10) Unknown Medication List - Last Reconciled 12/21/23 by Emily Adkins LPN dextroamphetamine-amphetamine 30 mg (Adderall) 30 mg PO DAILY levalbuterol HCl (Xopenex) 0.31 mg inhalation Q8H HPI Solitary pulmonary nodule HPI Details Tressa is a pleasant 63 year old female, former smoker, quit 1995, with less than 10 pyh, with underlying asthma , GERD, mitral valve prolapse under the care of [facility] cardiology. She was referred by neurology for incidental finding of pulmonary nodules and biapical scarring of bilateral apices on CTA. She was previously under the care of Dr. Jamison, research scientist at [facility], but d/c since asthma was well controlled. She reports over the last few months, she has experienced increased frequency of dyspnea independent of activity with associated wheezing. She denies chest tightness or cough. She is not on any maintenance inhalers. She reports environmental allergies, no recent allergy testing. She denies any pets. She denies any pertinent family history. She denies any occupational exposures. [facility] Medical History (Updated 12/21/23 @ 20:18 by Nelly Byrd NP) MVP (mitral valve prolapse) Chronic headaches Neck pain Short of breath on exertion Chest pain History of squamous cell carcinoma ADHD TMJ (dislocation of temporomandibular joint) Fibromyalgia Mild asthma JAISON (generalized anxiety disorder) Chronic GERD Surgical History H/O colonoscopy History of squamous cell carcinoma History of partial hysterectomy History of tubal ligation Family History Father Heart attack Hypercholesteremia Hypertension CHF (congestive heart failure) Mother Hypothyroidism Heart attack Tuberculosis Bladder cancer Breast cancer Pleurisy Sister Hypothyroidism Hypercholesteremia Spinal stenosis Arthritis Asthma Brother Hyperthyroidism Hypertension Hypercholesteremia Sister Hypercholesteremia Daughter Hypertension Hypercholesteremia ADHD Anxiety Myotonia congenita Son Myotonia congenita Son Myotonia congenita Social History (Updated 12/21/23 @ 09:14 by Emily Adkins LPN) Housing: House Alcohol intake: current Alcohol intake frequency: a few times a month Patient Tobacco Use Status: Former Tobacco user Quit Date: 1989 Tobacco use type: Cigarette Cigarette Packs Per Day: 0.5 Years Smoked: 10 e-Cigarette/Vaping Use: Never Used Second Hand Smoke Exposure: No service: No Current occupational status: retired Cognitive needs: No Hearing needs: No Vision needs: Yes Review of Systems Const Denies chills, Denies excessive sweating, Denies fever(s), Denies headache(s) and Denies night sweats Eyes Denies dry eyes, Denies irritation and Denies itchy eyes ENT Reports Normal hearing present, Denies headache(s), Denies nasal congestion, Denies nasal discharge, Denies post nasal drip and Denies sore throat Card Denies chest pain, Denies chest pain at rest, Denies chest pain with activity, Denies claudication, Denies leg edema, Denies orthopnea and Denies paroxysmal nocturnal dyspnea Resp Denies chest congestion, Denies cough, Denies excessive phlegm production, Denies pain on inspiration, Denies pain with cough, Denies stridor and Denies wheezing Musc Denies myalgias Neuro Reports Normal hearing present and Denies headache(s) Endo Denies excessive sweating Isaiah/Lymph Denies lymphadenopathy Aller/Immun Denies itchy eyes, Denies seasonal rhinorrhea and Denies wheezing Physical Exam Vital Signs: Last Vital Signs Pulse 70 12/21/23 09:05 BP 124/70 12/21/23 09:05 Pulse Ox 100 12/21/23 09:05 Oxygen Delivery Method Room Air 12/21/23 09:05 BMI result Body Mass Index 26.8 Const General: cooperative, healthy appearing, comfortable, no acute distress, well developed and alert Orientation/consciousness: patient oriented x3 Limitations: no limitations HEENT Head: Yes normal to inspection, Yes normocephalic and Yes atraumatic Ears: hearing grossly normal bilaterally and external ears normal Eyes General: appearance normal, both eyes and all related structures Eyelids: Yes eyelids normal Sclerae: sclerae normal EOM: EOMs intact bilaterally Neck Neck: Yes normal visual inspection and Yes no lymphadenopathy Lymphatic: no lymphadenopathy noted Chest Chest palpation & inspection: normal inspection of the chest Resp Effort & Inspection: normal respiratory effort, able to speak in complete sentences, no audible wheezes, no cough, no stridor, not tachypneic, no tripod positioning and no use of accessory muscles Auscultation: clear to auscultation bilaterally Cardio Jugular venous distension: no JVD Rate: regular rate Rhythm: regular rhythm Skin Other: warm, dry General skin exam: no rashes or lesions noted Neuro General: patient oriented x3 Cranial nerves: Yes Normal hearing present Cognition (Neuro): normal cognition Gait exam (Neuro): Normal gait present Extrem General: Yes normal to inspection, Yes capillary refill normal, Yes no clubbing, cyanosis or edema and Yes no pedal edema Psych Appearance: grossly normal and well kempt Speech and movement: Normal speech and movement present and Clear speech present Affect: normal affect Attitude: cooperative Thought process: Normal thought process present Thought content: Normal thought content present Insight: Good insight present (Psych) Judgement: Good judgement present (Psych) Results Reviewed Results Reviewed: [place] [id number] CT Scan Report Signed Patient: Tressa Felder MR#: [id number] : 1960 Acct:[id number] Age/Sex: 63 / F ADM Date: 10/05/23 Loc: HO.CT Attending Dr: Geeta NINA Ordering Physician: Geeta Hinds Date of Service: 10/05/23 Procedure(s): CT angio head neck Accession Number(s): [id number] cc: Geeta Hinds; María Pierson MD~ EXAMINATION: CT angio head neck CLINICAL INFORMATION: Dizziness. COMPARISON: No relevant prior imaging. TECHNIQUE: Sandstone Splitter images were obtained. A CT angiogram of the head and neck was performed in the arterial phase after the intravenous administration of 70 mL Omnipaque 350. Pre and delayed postcontrast images of the head were also obtained. 3D images were processed on an independent workstation under concurrent supervision. Arterial stenoses are measured in accordance with NASCET criteria or similar method if applicable. This CT examination was performed using dose optimization techniques as appropriate, including one or more of the following: Automated exposure control, iterative reconstruction, and adjustment of technique factors (mA and/or kVp) according to patient size (this includes techniques or standardized protocols for targeted exams where dose is matched to indication/reason for exam). Fleischner Society criteria for the followup of incidental pulmonary nodules was implemented if appropriate. Total exam dose-length product 2054 mGy-cm FINDINGS: Head: There is no acute intracranial hemorrhage or abnormal extra-axial collection. Postcontrast images reveal no abnormal intracranial mass or enhancement. No intracranial mass effect or midline shift. Lateral and third ventricles are normal. No hydrocephalus. Potts-white matter differentiation is preserved and there is no evidence of acute territorial infarct. The calvarium and skull base are intact. Mastoid air cells and middle ear cavities are well aerated. No active paranasal sinus disease. CT angiogram neck: The aortic arch apex is normal. Origins of major aortic branches are widely patent. Common carotid arteries and carotid bifurcations are normal. There is a slightly deviated irregular contour involving the right internal carotid artery along its midportion best visualized on axial image 286 of 562 series 13. Intracranial internal carotid arteries are otherwise patent. The cervical segments of the vertebral arteries are patent. CT angiogram head: Intracranial internal carotid arteries are normal. The intradural vertebral artery segments and basilar artery are normal. Anterior, middle, and posterior cerebral complexes are normal. No intracranial large vessel occlusion. No identifiable aneurysm or high flow vascular lesion. The timing of the contrast injection provides adequate opacification of the dural venous sinuses which are patent. Other: Soft tissues of the neck including the thyroid gland are normal. There is pleural-parenchymal scarring at the apices of both lungs. There are a few small nonspecific pulmonary nodule at the apex of the right lung, the largest of which measures 3.5 mm in diameter best visualized on axial image 488 of series 13. Grossly no pathologically enlarged cervical lymph nodes. No acute osseous finding. Specifically no worrisome lytic or blastic osseous lesion. CT/CT angio head neck IMPRESSION: There is a slightly deviated and irregular contour involving the right internal carotid artery along its midportion. This finding may represent a manifestation of fibromuscular dysplasia. Otherwise unremarkable CT angiogram of the head and neck. No stenosis of the cervical carotid or vertebral arteries. No intracranial large vessel occlusion. No evidence of acute territorial infarct or hemorrhage. No abnormal intracranial mass or enhancement. There are a few small nonspecific pulmonary nodules at the apex of the right lung, the largest of which measures 3.5 mm in diameter. According to the UPDATED 2017 Fleischner Society recommendations, the advised follow-up imaging for nodules <6mm in the upper lobes is not necessarily required in low-risk patients. In high-risk patients with a nodule in the upper lobe and/or demonstrating suspicious morphology, an optional CT follow-up at 12 months may be obtained. If stable at 12 months, no further follow-up is recommended. Dictated By: Pascual Alfonso MD Signed By: <Electronically signed by Pascual Alfonso MD in [place]> 10/11/23 1550 DD/ 0902 TD/TT: Direct Marketing Specialist: RH Assessment & Plan Assessment & Plan (1) Pulmonary nodule: Code(s): R91.1 - Solitary pulmonary nodule (2) Asthma: Code(s): J45.909 - Unspecified asthma, uncomplicated (3) Dyspnea: Code(s): R06.00 - Dyspnea, unspecified (4) Environmental allergies: Code(s): Z91.09 - Other allergy status, other than to drugs and biological substances Plan Tressa presents for pulmonary evaluation after recent CTA for dizziness revealed a few small nonspecific pulmonary nodule at the apex of the right lung, the largest of which measures 3.5 mm. Will send for a dedicated chest CT to assess for pulmonary contribution of dyspnea. Tressa's symptoms are likely related to underlying asthma with an allergic contribution. Will send for PFT and RAST to evaluate. Will also empirically trial ICS. Importance of oral hygiene reviewed. All questions were answered and patient is in agreement of plan. Will follow up to review results and response to inhaler. Orders: Orders Immunoglobulin E Today Z91.09 - Other allergy status, other than to drugs and biological substances Resp Allergy Profile Region I Today Z91.09 - Other allergy status, other than to drugs and biological substances Complete Blood Count Auto Diff Today Z91.09 - Other allergy status, other than to drugs and biological substances PFT pulmonary function test Today J45.909 - Unspecified asthma, uncomplicated, R06.00 - Dyspnea, unspecified CT chest wo IV con Today R06.00 - Dyspnea, unspecified Medications: New beclomethasone dipropionate 40 mcg/actuation (Qvar RediHaler) 1 inh inhalation BID 10.6 grams 3RF Coding Level of Care Code New Pt Level 4 (85738) Diagnoses Pulmonary nodule R91.1 Asthma J45.909 Dyspnea R06.00 Environmental allergies Z91.09
[2023-12-21 09:05] VITALS: BP 124/70; PULSE 70; O2SAT 100; BMI 26.8
== END 2023-12-21 10:05 | disposition home or self-care (01) ==
PROVIDERS: PCP Nurse Practitioner Primary Care; Referring Provider Nurse Practitioner Family; Visit Provider Nurse Practitioner Family
DX: R91.1 Solitary pulmonary nodule (principal); J45.909 Unspecified asthma, uncomplicated; R06.00 Dyspnea, unspecified; Z91.09 Other allergy status, other than to drugs and biological substances
CPT/HCPCS: 99204

== ENCOUNTER → 2023-12-21 08:59 | Outpatient (BNVA) | payer OTHER, SELFPAY | PROVIDERS: PCP Nurse Practitioner Primary Care; Referring Provider Nurse Practitioner Family; Visit Provider Nurse Practitioner Family ==

== ENCOUNTER 2023-12-21 10:10 | Outpatient (REF) | payer OTHER, SELFPAY ==
[2023-12-21 11:19] LABS: MANUAL DIFF FLAG NO
[2023-12-21 11:25] LABS: Basophils Percent Auto 0.6 % (0-2); Eosinophils Absolute Auto 0.1 X10*3/uL (0.0-0.4); Eosinophils Percent Auto 0.8 % (0-4); Hematocrit 41.9 % (37.0-47.0); Hemoglobin 13.4 g/dl (12.0-16.0); Imm Gran Abs Auto 0.01 X10*3/uL (0.00-0.03); Imm Gran Pct Auto 0.2 % (0.0-0.4); Lymphocytes Absolute Auto 1.6 X10*3/uL (1.2-4.9); Lymphocytes Percent Auto 24.8 % (20-40); Mean Corpuscular Hemoglobin 29.8 pg (27.0-33.0); Mean Corpuscular Volume 93.1 fL (80.0-98.0); Mean Platelet Volume 10.9 fL (9.4-12.3); Monocytes Absolute Auto 0.5 X10*3/uL (0.1-1.2); Monocytes Percent Auto 7.4 % (2-11); Neutrophils Absolute Auto 4.2 x10*3/uL (2.0-8.3); Neutrophils Percent Auto 66.2 % (45-73); Platelet Count 291 X10*3/uL (160-400); Red Cell Distribution Width 12.5 % (11.0-16.0); White Blood Count 6.4 X10*3/uL (4.8-10.8)
[2023-12-23 03:58] LABS: Class Alternaria alternata 0; Class Aspergillus fumigatus 0; Class Bermuda Grass 0/1; Class Birch 0/1; Class Cat Dander 3; Class Cladosporium herbarum 0; Class Cockroach 0; Class Common Ragweed 1; Class Cottonwood 0; Class Derm. pterony 0/1; Class Dermatophagoides farinae 0; Class Dog Dander 3; Class Elm 0; Class Maple Box Elder 0; Class Mountain Cedar 0; Class Mouse Urine Protein 2; Class Mugwort 0; Class Oak 0; Class Penicillium crysogenum 0; Class Rough Pigweed 0; Class Sheep Sorrel 0; Class Sycamore 0; Class Timothy Grass 2; Class Walnut Tree 0; Class White Ash 0; Class White Mulberry 0; D001 IgE D pteronyssinus 0.11 kU/L; D002 - IgE D farinae <0.10 kU/L; E001 - IgE Cat Dander 5.12 kU/L; E005 - IgE Dog Dander 3.64 kU/L; E072-IgE Mouse Urine 1.36 kU/L; G006 - IgE Timothy Grass 1.25 kU/L; I006-IgE Cockroach, German <0.10 kU/L; Immunoglobulin E 96 kU/L (<OR=114); M001 IgE Penicillium chrysogen <0.10 kU/L; M002 - IgE Cladosporium herbar <0.10 kU/L; M003 - IgE Aspergillus fumigat <0.10 kU/L; M006 - IgE Alternaria alternat <0.10 kU/L; T001 IgE Maple/Box Elder <0.10 kU/L; T003 IgE Common Silver Birch 0.25 kU/L; T006 - IgE Cedar, Mountain <0.10 kU/L; T007 - IgE Oak, White <0.10 kU/L; T008 IgE Elm, American <0.10 kU/L; T010 - IgE Walnut <0.10 kU/L; T011 - IgE Maple Leaf Sycamore <0.10 kU/L; T014 - IgE Cottonwood <0.10 kU/L; T015 - IgE Ash, White <0.10 kU/L; T070 - IgE White Mulberry <0.10 kU/L; W001 - IgE Ragweed, Short 0.48 kU/L; W006 - IgE Mugwort <0.10 kU/L; W014 IgE Pigweed, Common <0.10 kU/L; W018 IgE Sheep Sorrel <0.10 kU/L
== END 2023-12-21 10:11 | disposition home or self-care (01) ==
LOC: HO.WFDLDS 10:10
PROVIDERS: Visit Provider Nurse Practitioner Family
DX: Z91.09 Other allergy status, other than to drugs and biological substances (principal)
CPT/HCPCS: 36415; 82785; 85025; 86003

== ENCOUNTER 2024-01-04 11:06 | Outpatient (REF) | payer OTHER, SELFPAY ==
--- NOTE | 2024-01-04 13:38 | PFT_ITS ---
Flows: FEV1: 91 % of predicted at 2.23 L FVC: 98 % of predicted at 3.06 L FEV1/FVC: 73 % Bronchodilator response: Absent Volumes: Total lung capacity: 90 % of predicted at 4.58 L Residual volume: 82 % of predicted at 1.45 L Slow vital capacity: 94 % of predicted at 3.13 L Expiratory reserve volume: 68 % of predicted at 0.56 L Diffusion capacity: Normal Impression: No obstructive or restrictive ventilatory defect. No bronchodilator response. Normal pulmonary function test. MTDD
== END 2024-01-04 11:07 | disposition home or self-care (01) ==
LOC: HO.RESP 11:06
PROVIDERS: PCP Nurse Practitioner Primary Care; Visit Provider Nurse Practitioner Family
DX: J45.909 Unspecified asthma, uncomplicated (principal); R06.00 Dyspnea, unspecified
CPT/HCPCS: 94010; 94640; 94727; 94729

== ENCOUNTER → 2024-01-04 13:38 | Outpatient (BNV) | payer OTHER, SELFPAY | PROVIDERS: PCP Nurse Practitioner Primary Care; Visit Provider Internal Medicine Pulmonary Disease | DX: J45.909 Unspecified asthma, uncomplicated (principal) | CPT/HCPCS: 94060; 94727; 94729 ==

== ENCOUNTER 2024-03-01 10:35 | Outpatient (AMB) | payer OTHER, SELFPAY ==
[2024-03-01 10:36] VITALS: BMI 26.8
--- NOTE | 2024-03-01 10:36 | MHC.OFFVIS ---
Vital Signs 03/01/24 10:36 Height 5 ft 4 in Weight 156 lb BMI 26.8 Intake Visit Reasons: [employer]/ Neuro Ref for FMD s/p CT HEAD/Neck Intake Note: Neuro referral for fibromuscular dysplasia s/p CT head/neck 10/05/23. Testing was done due to headache, impaired vision,forgetfulness. pt states that she still gets this on occasion and gets a form of vertigo. Accompanied by: Self / Same As Patient Allergies cyclobenzaprine Allergy (Intermediate, Verified 03/01/24 10:40) mental status change Penicillins Allergy (Intermediate, Verified 03/01/24 10:40) upset stomach, headaches mold Allergy (Unknown, Verified 03/01/24 10:40) Unknown Yeast Allergy (Unknown, Verified 03/01/24 10:40) Unknown enviromental Allergy (Mild, Uncoded 03/01/24 10:40) mental status chage dairy Allergy (Unknown, Uncoded 03/01/24 10:40) Unknown HPI HPI [employer]/ Neuro Ref for FMD s/p CT HEAD/Neck: Details: Very pleasant 64-year-old female presents for evaluation regarding in questionable FMD. This was an incidental finding on a CT scan that was done on emergency room workup. She reports that this all began with persistent headache seeing stars and forgetfulness. She reports that it dating back to 2007 where she started to experience some tongue numbness. She has 3 kids has led a very active life and subsequent to that she did not pay attention to it more recently she is experiencing episodes of vertigo and memory issues. Led to a CT angiogram of the carotids. She had an incidental finding and now presents for follow-up regarding that. [facility] Medical History MVP (mitral valve prolapse) Chronic headaches Neck pain Short of breath on exertion Chest pain History of squamous cell carcinoma ADHD TMJ (dislocation of temporomandibular joint) Fibromyalgia Mild asthma JAISON (generalized anxiety disorder) Chronic GERD Surgical History H/O colonoscopy History of squamous cell carcinoma History of partial hysterectomy History of tubal ligation Family History Father Heart attack Hypercholesteremia Hypertension CHF (congestive heart failure) Mother Hypothyroidism Heart attack Tuberculosis Bladder cancer Breast cancer Pleurisy Sister Hypothyroidism Hypercholesteremia Spinal stenosis Arthritis Asthma Brother Hyperthyroidism Hypertension Hypercholesteremia Sister Hypercholesteremia Daughter Hypertension Hypercholesteremia ADHD Anxiety Myotonia congenita Son Myotonia congenita Son Myotonia congenita Social History Housing: House Alcohol intake: current Alcohol intake frequency: a few times a month Patient Tobacco Use Status: Former Tobacco user Quit Date: 1989 Tobacco use type: Cigarette Cigarette Packs Per Day: 0.5 Years Smoked: 10 e-Cigarette/Vaping Use: Never Used Second Hand Smoke Exposure: No service: No Current occupational status: retired Cognitive needs: No Hearing needs: No Vision needs: Yes Review of Systems Const All systems reviewed & are unremarkable except as noted in HPI and below Reports no additional complaints ENT Reports Normal hearing present Card Denies chest pain, Denies chest pain at rest, Denies chest pain with activity and Denies pedal edema Resp Denies cough GI Denies abdominal pain Musc Denies abnormal gait, Denies muscle cramps and Denies radiating pain into limb Skin/Breast Denies skin ulcer and Denies wounds Neuro Reports Normal hearing present and Denies abnormal gait Psych Reports no additional complaints Physical Exam Vital Signs: BMI result Body Mass Index 26.8 Const General: cooperative, healthy appearing and comfortable Orientation/consciousness: oriented to person, oriented to place and oriented to time HEENT Head: Yes normal to inspection Neck Neck: Yes normal visual inspection Carotids: no bruits Chest Chest palpation & inspection: normal inspection of the chest Resp Effort & Inspection: normal respiratory effort and able to speak in complete sentences Auscultation: clear to auscultation bilaterally, no crackles, no rales, no rhonchi and no wheezes Cardio Rate: regular rate Rhythm: regular rhythm Heart sounds: S1 normal heart sound present and S2 normal heart sound present Bruits: no carotid bruits Peripheral pulses: Peripheral pulses 2+ throughout GI Inspection: Yes normal to inspection Skin Wounds: no wounds Hair: normal Neuro General: oriented to person, oriented to place and oriented to time Cranial nerves: Yes CN's II-XII intact bilaterally and Yes Normal hearing present Cognition (Neuro): normal cognition Motor exam (neuro): 5/5 motor strength present throughout Extrem Other: venous exam: No significant superficial varicosities or spider telangiectasias, minimal edema General: No clubbing, No cyanosis and No edema Psych Appearance: grossly normal Mental Status: mental status grossly normal Speech and movement: Normal speech and movement present Results Reviewed Results Reviewed: CT angiogram dated 10/05/2023 demonstrates an irregular contour of the right internal carotid artery. Assessment & Plan Assessment & Plan (1) Carotid stenosis: Code(s): I65.29 - Occlusion and stenosis of unspecified carotid artery Category: Medical Qualifiers: Laterality: right Qualified Code(s): I65.21 - Occlusion and stenosis of right carotid artery Plan: In short there is concern about her right carotid stenosis and concern of FMD. I did review the written report and images of the CT scan and I do not appreciate it. I do suspect this is an over read by Radiology. I have taken the liberty of ordering a carotid ultrasound to better elucidate this. In addition her symptomatology does not seem to correlate with FMD of the carotids. She will follow up with us after testing. Thank you for allowing us to assist in her care. Orders: Orders US carotid duplex BI 1 Week I65.21 - Occlusion and stenosis of right carotid artery Coding Level of Care Code New Pt Level 4 (87518) Diagnoses Stenosis of right carotid artery I65.21 Laterality: right
== END 2024-03-01 11:01 | disposition home or self-care (01) ==
PROVIDERS: PCP Nurse Practitioner Primary Care; Visit Provider Surgery Vascular Surgery
DX: I65.21 Occlusion and stenosis of right carotid artery (principal)
CPT/HCPCS: 99203

== ENCOUNTER → 2024-03-01 10:35 | Outpatient (BNVA) | payer OTHER, SELFPAY | PROVIDERS: PCP Nurse Practitioner Primary Care; Visit Provider Surgery Vascular Surgery ==

== ENCOUNTER 2024-03-08 13:25 | Outpatient (REF) | payer OTHER, SELFPAY ==
--- NOTE | ~2024-03-08 | US_ITS ---
EXAMINATION: US EXTRACRANIAL CAROTID DUPLEX, BILATERAL CLINICAL INFORMATION: Stenosis of the right carotid artery COMPARISON: None available. TECHNIQUE: Real-time ultrasound and Doppler techniques (integrating B-mode 2-D vascular images, Doppler spectral analysis and color-flow Doppler imaging) were utilized to interrogate the extracranial carotid arteries, the vertebral arteries and proximal subclavian arteries bilaterally. The degree of stenosis is determined by criteria similar to NASCET. FINDINGS: Right Side: 1. There is no atherosclerotic plaque seen in the bifurcation/proximal ICA region. 2. The common carotid artery PSV proximally is 134 cm/s and distally 108 cm/s. 3. The proximal internal carotid artery velocities are 73 cm/s systolic and 21 cm/s diastolic. 4. The proximal external carotid artery PSV is 94 cm/s. 5. The vertebral artery shows antegrade flow. 6. The subclavian artery waveforms are normal. Left Side: 1. There is no atherosclerotic plaque seen in the bifurcation/proximal ICA region. 2. The common carotid artery PSV proximally is 111 cm/s and distally 95 cm/s. 3. The proximal internal carotid artery velocities are 85 cm/s systolic and 27 cm/s diastolic. 4. The proximal external carotid artery PSV is 75 cm/s. 5. The vertebral artery shows antegrade flow. 6. The subclavian artery waveforms are normal. US/US carotid duplex BI IMPRESSION: 1. RIGHT: Normal right internal carotid artery without atherosclerotic plaque or hemodynamically significant stenosis. 2. LEFT: Normal left internal carotid artery without atherosclerotic plaque or hemodynamically significant stenosis.
== END 2024-03-08 13:26 | disposition home or self-care (01) ==
LOC: HO.US 13:25
PROVIDERS: PCP Nurse Practitioner Primary Care; Visit Provider Surgery Vascular Surgery
DX: I65.21 Occlusion and stenosis of right carotid artery (principal)
CPT/HCPCS: 93880

== ENCOUNTER 2024-03-22 11:09 | Outpatient (AMB) | payer OTHER, SELFPAY ==
[2024-03-22 11:08] VITALS: BP 134/84; BMI 26.8
--- NOTE | 2024-03-22 11:08 | MHC.OFFVIS ---
Vital Signs 03/22/24 11:08 03/22/24 11:21 Height 5 ft 4 in Weight 156 lb BMI 26.8 BP 134/84 124/90 H Blood Pressure Location Rt brachial Lt brachial Position Sitting Sitting Intake Visit Reasons: f/u s/p Carotid US 03/08/24 Intake Note: follow up carotid US 03/08/24 for fibromuscular dysplasia (s/p CT head/neck 10/05/23). Pt states increase in tongue numbness and forgetfulness, pt brought in an MRI of the cervical spine 05/21/2020. Pt states she has some LE pain as well. Accompanied by: Self / Same As Patient Allergies cyclobenzaprine Allergy (Intermediate, Verified 03/22/24 11:17) mental status change Penicillins Allergy (Intermediate, Verified 03/22/24 11:17) upset stomach, headaches mold Allergy (Unknown, Verified 03/22/24 11:17) Unknown Yeast Allergy (Unknown, Verified 03/22/24 11:17) Unknown enviromental Allergy (Mild, Uncoded 03/22/24 11:17) mental status chage dairy Allergy (Unknown, Uncoded 03/22/24 11:17) Unknown HPI HPI f/u s/p Carotid US 03/08/24: Details: Complex 64-year-old female presents for follow-up evaluation regarding FMD. Was an incidental finding on CT scan. She had undergone a CT angiogram at that time where there was a question of FMD. She now has undergone carotid ultrasound. She has had no significant interval changes. Her biggest complaint at the current time is chronic fatigue and vertigo. She has been worked up extensively in the past and has seen neurologist Dr. Stephens and at the current time is seeing Neurology nurse practitioner Geeta Hinds. Of note on vitals there is a blood pressure discrepancy on the right of 138/84 and on the left of 124/90. This is only 10 mmHg systolic difference which is within the realms of normal limits. At the current time she is asymptomatic from her upper extremities as well. [facility] Medical History (Updated 03/22/24 @ 12:23 by Fabio Bernal MD) Carotid stenosis MVP (mitral valve prolapse) Chronic headaches Neck pain Short of breath on exertion Chest pain History of squamous cell carcinoma ADHD TMJ (dislocation of temporomandibular joint) Fibromyalgia Mild asthma JAISON (generalized anxiety disorder) Chronic GERD Surgical History H/O colonoscopy History of squamous cell carcinoma History of partial hysterectomy History of tubal ligation Family History Father Heart attack Hypercholesteremia Hypertension CHF (congestive heart failure) Mother Hypothyroidism Heart attack Tuberculosis Bladder cancer Breast cancer Pleurisy Sister Hypothyroidism Hypercholesteremia Spinal stenosis Arthritis Asthma Brother Hyperthyroidism Hypertension Hypercholesteremia Sister Hypercholesteremia Daughter Hypertension Hypercholesteremia ADHD Anxiety Myotonia congenita Son Myotonia congenita Son Myotonia congenita Social History Housing: House Alcohol intake: current Alcohol intake frequency: a few times a month Patient Tobacco Use Status: Former Tobacco user Tobacco use type: Cigarette Cigarette Packs Per Day: 0.5 Years Smoked: 10 e-Cigarette/Vaping Use: Never Used Second Hand Smoke Exposure: No service: No Current occupational status: retired Cognitive needs: No Hearing needs: No Vision needs: Yes Physical Exam Vital Signs: Last Vital Signs BP 124/90 H 03/22/24 11:21 BMI result Body Mass Index 26.8 Cardio Other: On lower extremities I did appreciate palpable DP and PT pulses Upper extremities had palpable radial and ulnar pulses bilaterally. Results Reviewed Results Reviewed: Carotid ultrasound dated 03/08/2024 demonstrates bilateral normal internal carotid arteries without plaque or hemodynamically significant stenosis. Written report and images were reviewed. Assessment & Plan Assessment & Plan (1) Abnormal computed tomography angiography (CTA) of neck: Code(s): R93.89 - Abnormal findings on diagnostic imaging of other specified body structures Category: Medical Plan: In short patient does not have any evidence of FMD. Unclear of what to make of her symptomatology. I did have an extensive discussion with her and do not believe this is vascular in nature. She is currently following neurology. It may be beneficial to see ENT as she does currently experience some vertigo. She had seen ENT in the remote past. She will follow up with us on an as-needed basis. Thank you for allowing us to assist in her care. Coding Level of Care Code Est Pt Level 4 (45924) Diagnoses Abnormal computed tomography angiography (CTA) of neck R93.89
[2024-03-22 11:21] VITALS: BP 124/90
== END 2024-03-22 12:05 | disposition home or self-care (01) ==
PROVIDERS: PCP Nurse Practitioner Primary Care; Visit Provider Surgery Vascular Surgery
DX: R93.89 Abnormal findings on diagnostic imaging of other specified body structures (principal)
CPT/HCPCS: 99213

== ENCOUNTER → 2024-03-22 11:09 | Outpatient (BNVA) | payer OTHER, SELFPAY | PROVIDERS: PCP Nurse Practitioner Primary Care; Visit Provider Surgery Vascular Surgery ==

== ENCOUNTER 2024-04-02 09:12 | Outpatient (AMB) | payer OTHER, SELFPAY ==
--- NOTE | 2024-04-02 09:29 | MHC.OFFVIS ---
Vital Signs 04/02/24 09:30 Height 5 ft 4 in Weight 159 lb 8 oz BMI 27.4 BP 122/82 Blood Pressure Location Rt brachial Position Sitting Respiration 16 Pulse 67 Pulse Source Pulse Oximeter Pulse Oximetry (%) 97 Oxygen Delivery Method Room Air Intake Visit Reasons: follow up-CONF Intake Note: Pt presents for a 4 month follow up for headaches. [employer] Required: No Allergies cyclobenzaprine Allergy (Intermediate, Verified 04/02/24 09:30) mental status change Penicillins Allergy (Intermediate, Verified 04/02/24 09:30) upset stomach, headaches mold Allergy (Unknown, Verified 04/02/24 09:30) Unknown Yeast Allergy (Unknown, Verified 04/02/24 09:30) Unknown enviromental Allergy (Mild, Uncoded 03/22/24 11:17) mental status chage dairy Allergy (Unknown, Uncoded 03/22/24 11:17) Unknown Medication List - Last Reconciled 04/02/24 by KELLE Cervantes budesonide 90 mcg/actuation (Pulmicort Flexhaler) 1 inh inhalation BID dextroamphetamine-amphetamine 30 mg (Adderall) 30 mg PO DAILY estradiol 1 patch transdermal 2XW levalbuterol HCl (Xopenex) 0.31 mg inhalation Q8H progesterone micronized 100 mg PO QAM HPI Comments Details: 64-yr-old female presents for f/u visit. Pt reports she is having episodes of vertigo. She feels like she is on a boat or elevator but she is not, feels like she is floating. May feel like she is being pulled. This occurs more when she is walking. Sitting down helps. She had vestibular evaluation. 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 She notes she feels overwhelmed. States she used to be healthy, but now has many little things wrong with her. She does not know what is causing what. She has difficulty describing her symptoms. She just wants to know what is wrong with her, and if this is how she will need to live going forward. Vascular consult- they did not feel that the slightly deviated and irregular contour of the right internal carotid artery along its midportion was c/w fibromuscular dysplasia. Pulmonology consult- to eval asthma, pulmonary nodules and pleaural-parenchymal scarring seen on Neck CTA. Has had consult, and f/u PFTs and allergy testing. States she is also f/b dermatology- for areas of skin hypopigmentation. She states her whole body hurts. She feels fatigue. Her ears feel full. She has brief headaches that comes and goes. Has nausea at times- increased with the vertigo. Denies photophobia, phonophobia. Her memory is worse. She may forget to take her Adderall. It does help her to read better. She is f/b her psychiatrist. She is prone to worry. She feels her feet can feel numb at times, but can feel the ground when she is walking. She had an HST in the past- ? mild sleep apnea. [facility] Medical History (Updated 04/02/24 @ 10:50 by KELLE Cervantes) Fibromuscular dysplasia Carotid stenosis MVP (mitral valve prolapse) Chronic headaches Neck pain Short of breath on exertion Chest pain History of squamous cell carcinoma ADHD TMJ (dislocation of temporomandibular joint) Fibromyalgia Mild asthma JAISON (generalized anxiety disorder) Chronic GERD Surgical History H/O colonoscopy History of squamous cell carcinoma History of partial hysterectomy History of tubal ligation Family History Father Heart attack Hypercholesteremia Hypertension CHF (congestive heart failure) Mother Hypothyroidism Heart attack Tuberculosis Bladder cancer Breast cancer Pleurisy Sister Hypothyroidism Hypercholesteremia Spinal stenosis Arthritis Asthma Brother Hyperthyroidism Hypertension Hypercholesteremia Sister Hypercholesteremia Daughter Hypertension Hypercholesteremia ADHD Anxiety Myotonia congenita Son Myotonia congenita Son Myotonia congenita Social History Housing: House Alcohol intake: current Alcohol intake frequency: a few times a month Patient Tobacco Use Status: Former Tobacco user Tobacco use type: Cigarette Cigarette Packs Per Day: 0.5 Years Smoked: 10 e-Cigarette/Vaping Use: Never Used Second Hand Smoke Exposure: No service: No Current occupational status: retired Cognitive needs: No Hearing needs: No Vision needs: Yes Physical Exam Vital Signs: Last Vital Signs Pulse 67 04/02/24 09:30 Resp 16 04/02/24 09:30 BP 122/82 04/02/24 09:30 Pulse Ox 97 04/02/24 09:30 Oxygen Delivery Method Room Air 04/02/24 09:30 BMI result Body Mass Index 27.4 Const General: cooperative and no acute distress Orientation/consciousness: patient oriented x3 HEENT Other: Bilateral ear wax accumulation, more so on left. Resp Effort & Inspection: normal respiratory effort and able to speak in complete sentences Neuro Other: A&O, some STM lapses- for instance could not say whether or not she had been referred to ENT. General: patient oriented x3 Cranial nerves: Yes CN's II-XII intact bilaterally Cognition (Neuro): normal cognition Psych Appearance: grossly normal Mental Status: mental status grossly normal Speech and movement: Normal speech and movement present Affect: normal affect Attitude: cooperative Assessment & Plan Assessment & Plan (1) Dizziness: Code(s): R42 - Dizziness and giddiness Category: Medical (2) Headache: Code(s): R51.9 - Headache, unspecified Category: Medical (3) Chiari I malformation: Code(s): G93.5 - Compression of brain Category: Medical (4) Fatigue: Code(s): R53.83 - Other fatigue Category: Medical (5) Sleep difficulties: Code(s): G47.9 - Sleep disorder, unspecified Category: Medical (6) Snoring: Code(s): R06.83 - Snoring Category: Medical (7) Vertigo: Code(s): R42 - Dizziness and giddiness Category: Medical Plan Vascular consult- they did not feel that the slightly deviated and irregular contour of the right internal carotid artery along its midportion was c/w fibromuscular dysplasia. Pulmonology consult- to eval asthma, pulmonary nodules and pleaural-parenchymal scarring seen on Neck CTA. Has had consult, and f/u PFTs and allergy testing. Check Brain MRI w/wo- to assess for secondary etiologies of new onset vertigo. Will initiate referral for ENT consult of vertigo. Pt has bilateral ear wax build-up- may try gentle OTC wax removal, such as deborx. Initiate order for HST to assess for sleep apnea- if present may be contributing to many of her s/s. Pt encouraged to establish care w/ a psychologist. If above work-up is WNL- plan to optimize migraine/headcahe prevention tx. Note pt is hesitant to try new medications. ? Sumatriptan 50mg prn. ? F/u upon review of above and in clinic in 6 months or sooner prn Orders: Orders MR head/brain wo/w con Today G93.5 - Compression of brain, R42 - Dizziness and giddiness, R51.9 - Headache, unspecified RT home sleep study Today G47.9 - Sleep disorder, unspecified, R06.83 - Snoring, R53.83 - Other fatigue Referrals Ear/Nose/Throat Referral R42 - Dizziness and giddiness Coding Level of Care Code Est Pt Level 4 (97807) Diagnoses Dizziness R42 Headache R51.9 Chiari I malformation G93.5 Fatigue R53.83 Sleep difficulties G47.9 Snoring R06.83 Vertigo R42
[2024-04-02 09:30] VITALS: BP 122/82; PULSE 67; RESP 16; O2SAT 97; BMI 27.4
== END 2024-04-02 10:28 | disposition home or self-care (01) ==
PROVIDERS: PCP Nurse Practitioner Primary Care; Visit Provider Nurse Practitioner Family
DX: R42 Dizziness and giddiness (principal); R51.9 Headache, unspecified; G93.5 Compression of brain; R53.83 Other fatigue; G47.9 Sleep disorder, unspecified; R06.83 Snoring
CPT/HCPCS: 99214

== ENCOUNTER → 2024-04-02 09:12 | Outpatient (BNVA) | payer OTHER, SELFPAY | PROVIDERS: PCP Nurse Practitioner Primary Care; Visit Provider Nurse Practitioner Family ==

== ENCOUNTER 2024-04-18 11:23 | Outpatient (REF) | payer OTHER, SELFPAY ==
--- NOTE | ~2024-04-18 | MR_ITS ---
EXAMINATION: MR BRAIN WITHOUT AND WITH CONTRAST CLINICAL INFORMATION: Dizziness and giddiness. COMPARISON: CTA head and neck from 10/05/2023. TECHNIQUE: Multiplanar, multisequence MRI of the brain was obtained using a skull base protocol without and following the administration of 7 mL of Gadavist intravenous contrast. FINDINGS: No focal restricted diffusion is demonstrated to suggest acute or subacute cerebral ischemia. No evidence of acute or chronic hemorrhagic products on heme-sensitive imaging. Scattered periventricular and deep white matter T2 FLAIR hyperintensities consistent with mild underlying microangiopathy. The ventricles are normal in morphology and size. No abnormal mass effect. No midline shift. Normal appearance of the pituitary gland. The cerebellar tonsils are low lying, positioned 0.6 cm below the foramen magnum. The CSF space of the foramen magnum is maintained. No mass of the cerebellopontine angles. Normal appearance of the cranial nerve V, VII, and VIII nerve roots. No edema or vascular loops near the nerve root entry sites. Normal appearance of the internal auditory canals without enhancing mass lesions. No abnormal enhancement along the course of the facial nerves bilaterally. Normal appearance of the labyrinthine structures without loss of T2 signal or abnormal enhancement. Normal arterial and venous vascular flow voids are present. No abnormal intracranial contrast enhancement. Normal, homogeneous marrow signal. Mild mucosal thickening of the paranasal sinuses. Mild rightward nasal septal deviation. No signal abnormalities within the mastoids. MR/MR head/brain wo/w con IMPRESSION: 1. No acute intracranial abnormalities. No abnormal intracranial enhancement. 2. Mild underlying microangiopathy. 3. Mild Chiari I malformation. 4. No additional MRI abnormalities to explain the patient's symptoms.
[2024-04-18] MEDS: gadobutroL 7.5 ML VIAL IVPUSH (12:27)
== END 2024-04-18 11:24 | disposition home or self-care (01) ==
LOC: HO.MRI 11:23
PROVIDERS: PCP Nurse Practitioner Primary Care; Visit Provider Nurse Practitioner Family
DX: R42 Dizziness and giddiness (principal); R51.9 Headache, unspecified; G93.5 Compression of brain
CPT/HCPCS: 70553; A9585

== ENCOUNTER 2024-07-12 13:41 | Outpatient (REF) | payer OTHER, SELFPAY | END 2024-07-12 13:42 | disposition home or self-care (01) | LOC: HO.LNP 13:41 | PROVIDERS: Visit Provider Otolaryngology | DX: B37.9 Candidiasis, unspecified (principal) | CPT/HCPCS: 87102 ==

== ENCOUNTER 2024-08-28 08:50 | Outpatient (REF) | payer OTHER, SELFPAY ==
--- NOTE | ~2024-08-28 | CT_ITS ---
EXAMINATION: CT CHEST WITHOUT CONTRAST CLINICAL INFORMATION: Solitary pulmonary nodule COMPARISON: None available. TECHNIQUE: Multidetector volumetric CT imaging of the chest was done. Axial MIP volume rendering provided. Sagittal and coronal reformatted images were obtained. This CT examination was performed using dose optimization techniques as appropriate, variously including the following: *Automated exposure control *Adjustment of mA and/or kV according to patient size (this includes techniques or standardized protocols for targeted exams where dose is matched to indication/reason for exam; i.e. extremities or head) *Use of iterative reconstruction technique DLP: 114 mGy-cm LUNGS: No acute airspace disease. No interstitial lung disease. No bronchiectasis. Central bronchial airways are open. Lung nodules: Stable 3 mm nodule right upper lobe image 111/612 series 5. This is stable since CT October 05, 2023. No further follow-up imaging recommended. No new or additional lung nodules. MEDIASTINUM: No mediastinal mass or significant lymphadenopathy. Heart size normal. No pericardial effusion. CORONARY ARTERY CALCIFICATION: None visualized on this study. PLEURA: There is no pleural effusion. No pleural mass or thickening. AXILLA: No lymphadenopathy. UPPER ABDOMEN: Unremarkable. OSSEOUS STRUCTURES: Unremarkable. CT/CT chest wo IV con IMPRESSION: 1. Stable 3 mm nodule right upper lobe. No further follow-up imaging recommended. 2. No acute abnormality of chest. Fleischner guidelines were followed. Electronically signed by: Philippe Varner MD 09/25/2024 03:09 PM JOANNA
== END 2024-08-28 08:51 | disposition home or self-care (01) ==
LOC: HO.CT 08:50
PROVIDERS: PCP Nurse Practitioner Primary Care; Visit Provider Nurse Practitioner Family
DX: R91.1 Solitary pulmonary nodule (principal)
CPT/HCPCS: 71250

== ENCOUNTER 2024-09-26 10:45 | Outpatient (AMB) | payer OTHER, SELFPAY ==
--- NOTE | 2024-09-26 10:49 | A.OFFVIS_ITS ---
Vital Signs 09/26/24 10:51 Height 5 ft 4 in Weight 150 lb 4 oz BMI 25.8 BP 118/74 Blood Pressure Location Rt brachial Position Sitting Pulse 77 Pulse Source Pulse Oximeter Pulse Oximetry (%) 100 Oxygen Delivery Method Room Air Intake Visit Reasons: Solitary pulmonary nodule Allergies cyclobenzaprine Allergy (Intermediate, Verified 09/26/24 10:54) mental status change Penicillins Allergy (Intermediate, Verified 09/26/24 10:54) upset stomach, headaches mold Allergy (Unknown, Verified 09/26/24 10:54) Unknown Yeast Allergy (Unknown, Verified 09/26/24 10:54) Unknown enviromental Allergy (Mild, Uncoded 09/26/24 10:54) mental status chage dairy Allergy (Unknown, Uncoded 09/26/24 10:54) Unknown HPI HPI Solitary pulmonary nodule: Details: Tressa is a pleasant 64 year old female, former smoker, quit 1995, with less than 10 pyh, with underlying asthma , GERD, mitral valve prolapse under the care of [facility] cardiology. She was referred by neurology for incidental finding of pulmonary nodules and biapical scarring of bilateral apices on CTA. Today she presents to review chest CT results. Since the last visit, she reports dry cough that has been persistent over the last few months. She denies fever, chills or chest congestion. She denies wheezing, dyspnea or chest tightness. She has been using Pulmicort however only 1 inhalation per day, not using levalbuterol. She does report significant allergy history previously underwent allergen immunotherapy with good effect however this was 10+ years ago. She is not using any daily antihistamines or nasal sprays. She denies postnasal drip. She denies reflux. She denies any visits to urgent care or hospitalizations related to respiratory distress. [facility] Medical History (Updated 09/26/24 @ 12:51 by Nelly Byrd NP) Fibromuscular dysplasia Carotid stenosis MVP (mitral valve prolapse) Chronic headaches Neck pain Short of breath on exertion Chest pain History of squamous cell carcinoma ADHD TMJ (dislocation of temporomandibular joint) Fibromyalgia Mild asthma JAISON (generalized anxiety disorder) Chronic GERD Surgical History H/O colonoscopy History of squamous cell carcinoma History of partial hysterectomy History of tubal ligation Family History Father Heart attack Hypercholesteremia Hypertension CHF (congestive heart failure) Mother Hypothyroidism Heart attack Tuberculosis Bladder cancer Breast cancer Pleurisy Sister Hypothyroidism Hypercholesteremia Spinal stenosis Arthritis Asthma Brother Hyperthyroidism Hypertension Hypercholesteremia Sister Hypercholesteremia Daughter Hypertension Hypercholesteremia ADHD Anxiety Myotonia congenita Son Myotonia congenita Son Myotonia congenita Social History Housing: House Alcohol intake: current Alcohol intake frequency: a few times a month Patient Tobacco Use Status: Former Tobacco user Tobacco use type: Cigarette Cigarette Packs Per Day: 0.5 Years Smoked: 10 e-Cigarette/Vaping Use: Never Used Second Hand Smoke Exposure: No service: No Current occupational status: retired Cognitive needs: No Hearing needs: No Vision needs: Yes Review of Systems Const Denies chills, Denies excessive sweating, Denies fever(s), Denies headache(s) and Denies night sweats Eyes Denies dry eyes, Denies irritation and Denies itchy eyes ENT Reports Normal hearing present, Denies headache(s), Denies nasal congestion, De nies nasal discharge, Denies post nasal drip and Denies sore throat Card Denies chest pain, Denies chest pain at rest, Denies chest pain with activity, Denies claudication, Denies leg edema, Denies dyspnea, Denies dyspnea on exertion, Denies orthopnea and Denies paroxysmal nocturnal dyspnea Resp Denies chest congestion, Denies excessive phlegm production, Denies pain on inspiration, Denies pain with cough, Denies dyspnea, Denies dyspnea on exertion, Denies stridor and Denies wheezing Musc Denies myalgias Neuro Reports Normal hearing present and Denies headache(s) Endo Denies excessive sweating Isaiah/Lymph Denies lymphadenopathy Aller/Immun Denies itchy eyes, Denies seasonal rhinorrhea and Denies wheezing Physical Exam Vital Signs: Last Vital Signs Pulse 77 09/26/24 10:51 BP 118/74 09/26/24 10:51 Pulse Ox 100 09/26/24 10:51 Oxygen Delivery Method Room Air 09/26/24 10:51 BMI result Body Mass Index 25.8 Const General: cooperative, healthy appearing, comfortable, no acute distress, well developed and alert Orientation/consciousness: patient oriented x3 Limitations: no limitations HEENT Head: Yes normal to inspection, Yes normocephalic and Yes atraumatic Ears: hearing grossly normal bilaterally and external ears normal Eyes General: appearance normal, both eyes and all related structures Eyelids: Yes eyelids normal Sclerae: sclerae normal EOM: EOMs intact bilaterally Neck Neck: Yes normal visual inspection and Yes no lymphadenopathy Lymphatic: no lymphadenopathy noted Chest Chest palpation & inspection: normal inspection of the chest Resp Other: Persistent dry cough throughout visit Effort & Inspection: normal respiratory effort, able to speak in complete sent ences, no audible wheezes, no stridor, not tachypneic, no tripod positioning and no use of accessory muscles Auscultation: clear to auscultation bilaterally Cardio Jugular venous distension: no JVD Rate: regular rate Rhythm: regular rhythm Skin Other: warm, dry General skin exam: no rashes or lesions noted Neuro General: patient oriented x3 Cranial nerves: Yes Normal hearing present Cognition (Neuro): normal cognition Gait exam (Neuro): Normal gait present Extrem General: Yes normal to inspection, Yes capillary refill normal, Yes no clubbing, cyanosis or edema and Yes no pedal edema Psych Appearance: grossly normal and well kempt Speech and movement: Normal speech and movement present and Clear speech present Affect: normal affect Attitude: cooperative Thought process: Normal thought process present Thought content: Normal thought content present Insight: Good insight present (Psych) Judgement: Good judgement present (Psych) Assessment & Plan Assessment & Plan (1) Asthma: Code(s): J45.909 - Unspecified asthma, uncomplicated Category: Medical (2) Pulmonary nodule: Code(s): R91.1 - Solitary pulmonary nodule Category: Medical (3) Environmental allergies: Code(s): Z91.09 - Other allergy status, other than to drugs and biological substances Category: Medical (4) Cough: Code(s): R05.9 - Cough, unspecified Category: Medical Plan Reviewed chest CT which revealed stable nodule of the right apex, the largest of which measures 3.5 mm. Will repeat in 1 year to assess stability, if no changes that no further need for imaging. Encouraged Tressa to use Pulmicort 1 inhalation twice daily as well as use a daily antihistamine to see if there is any improvement in symptoms, as this may be contributing to cough. Will also enter allergy referral to assess candidacy for allergen immunotherapy. All questions were answered and patient is in agreement of plan. Will follow-up in 6-8 weeks or sooner if needed. Orders: Orders CT chest wo IV con 11 Months R91.1 - Solitary pulmonary nodule Referrals Allergy & Immunology Referral J45.909 - Unspecified asthma, uncomplicated, Z91.09 - Other allergy status, other than to drugs and biological substances Medications: Refilled budesonide 90 mcg/actuation (Pulmicort Flexhaler) 1 inh inhalation BID 1 ea 3RF Coding Level of Care Code Est Pt Level 4 (22263) Diagnoses Asthma J45.909 Pulmonary nodule R91.1 Environmental allergies Z91.09 Cough R05.9
[2024-09-26 10:51] VITALS: BP 118/74; PULSE 77; O2SAT 100; BMI 25.8
== END 2024-09-26 12:04 | disposition home or self-care (01) ==
PROVIDERS: PCP Nurse Practitioner Primary Care; Visit Provider Nurse Practitioner Family
DX: J45.909 Unspecified asthma, uncomplicated (principal); R91.1 Solitary pulmonary nodule; Z91.09 Other allergy status, other than to drugs and biological substances; R05.9 Cough, unspecified
CPT/HCPCS: 99214

== ENCOUNTER → 2024-09-26 10:45 | Outpatient (BNVA) | payer OTHER, SELFPAY | PROVIDERS: PCP Nurse Practitioner Primary Care; Visit Provider Nurse Practitioner Family ==

== ENCOUNTER 2024-11-01 08:33 | Outpatient (AMB) | payer OTHER, SELFPAY ==
[2024-11-01 08:36] VITALS: BP 116/80; PULSE 76; O2SAT 95; BMI 25.8
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
== END 2024-11-01 09:34 | disposition home or self-care (01) ==
PROVIDERS: PCP Nurse Practitioner Primary Care; Visit Provider Nurse Practitioner Family
DX: K21.9 Gastro-esophageal reflux disease without esophagitis (principal); K59.00 Constipation, unspecified; E87.5 Hyperkalemia; R00.2 Palpitations; R42 Dizziness and giddiness; R51.9 Headache, unspecified; G93.5 Compression of brain; G60.8 Other hereditary and idiopathic neuropathies
CPT/HCPCS: 99214

== ENCOUNTER 2024-11-01 08:33 | Outpatient (REF) | payer OTHER, SELFPAY ==
[2024-11-01 17:48] LABS: MANUAL DIFF FLAG NO
[2024-11-01 17:52] LABS: Basophils Percent Auto 0.7 % (0-2); Eosinophils Absolute Auto 0.1 X10*3/uL (0.0-0.4); Eosinophils Percent Auto 1.1 % (0-4); Hematocrit 40.2 % (37.0-47.0); Hemoglobin 12.6 g/dl (12.0-16.0); Imm Gran Abs Auto 0.01 X10*3/uL (0.00-0.03); Imm Gran Pct Auto 0.2 % (0.0-0.4); Lymphocytes Absolute Auto 1.4 X10*3/uL (1.2-4.9); Lymphocytes Percent Auto 31.3 % (20-40); Mean Corpuscular HGB Conc 31.3 g/dl (31.0-35.0); Mean Corpuscular Hemoglobin 29.9 pg (27.0-33.0); Mean Corpuscular Volume 95.5 fL (80.0-98.0); Mean Platelet Volume 11.1 fL (9.4-12.3); Monocytes Absolute Auto 0.4 X10*3/uL (0.1-1.2); Monocytes Percent Auto 9.3 % (2-11); Neutrophils Absolute Auto 2.6 x10*3/uL (2.0-8.3); Neutrophils Percent Auto 57.4 % (45-73); Platelet Count 305 X10*3/uL (160-400); Red Blood Count 4.21 X10*6/uL (4.20-5.50); Red Cell Distribution Width 12.9 % (11.0-16.0); White Blood Count 4.5 X10*3/uL (4.8-10.8)
[2024-11-01 18:08] LABS: Alanine Aminotransferase 16 U/L (0-31); Albumin Level 4.2 g/dL (3.5-5.0); Alkaline Phosphatase 73 U/L (39-117); Anion Gap 9 (12-20); Aspartate Amino Transferase 24 U/L (5-31); Bilirubin Total 0.3 mg/dL (0.0-1.0); Blood Urea Nitrogen 18 mg/dL (9-16); Calcium 8.6 mg/dL (8.4-10.2); Carbon Dioxide 25 mmol/L (22-29); Chloride 111 mmol/L (96-108); Estimated Glomerular Filt Rate > 60; Glucose Random 83 mg/dL (60-115); Potassium 5.3 mmol/L (3.3-5.1); Sodium 140 mmol/L (135-145); Total Protein 7.6 g/dL (6.5-8.0)
== END 2024-11-01 08:34 | disposition home or self-care (01) ==
LOC: HO.HKASLDS 08:33
PROVIDERS: PCP Nurse Practitioner Primary Care; Visit Provider Nurse Practitioner Family
DX: E87.5 Hyperkalemia (principal); R00.2 Palpitations
CPT/HCPCS: 36415; 80053; 85025

== ENCOUNTER 2024-12-06 11:14 | Outpatient (AMB) | payer OTHER, SELFPAY ==
--- NOTE | 2024-12-06 11:21 | HO.NEPHOV ---
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 She has not been on any JONI inhibitor, ARB, spironolactone or nonsteroidal anti-inflammatories. She had take and Diflucan until October. She does not any nausea vomiting or diarrhea. She has not been using any salt substitute. She does not consume any excessive potassium containing diet. She has no history of metabolic acidosis, hypokalemia or renal calculus. She has history of Raynaud's disease but denies any other major autoimmune diseases affecting multiple organs. She maintains good hydration. Her renal function normal. Recently her serum potassium was found to be 6 weeks subsequently went repeated it had improved to 5.3. [facility] Medical History Fibromuscular dysplasia Carotid stenosis MVP (mitral valve prolapse) Chronic headaches Neck pain Short of breath on exertion Chest pain History of squamous cell carcinoma ADHD TMJ (dislocation of temporomandibular joint) Fibromyalgia Mild asthma JAISON (generalized anxiety disorder) Chronic GERD Surgical History H/O colonoscopy History of squamous cell carcinoma History of partial hysterectomy History of tubal ligation Family History Father Heart attack Hypercholesteremia Hypertension CHF (congestive heart failure) Mother Hypothyroidism Heart attack Tuberculosis Bladder cancer Breast cancer Pleurisy Sister Hypothyroidism Hypercholesteremia Spinal stenosis Arthritis Asthma Brother Hyperthyroidism Hypertension Hypercholesteremia Sister Hypercholesteremia Daughter Hypertension Hypercholesteremia ADHD Anxiety Myotonia congenita Son Myotonia congenita Son Myotonia congenita Social History Housing: House Alcohol intake: current Alcohol intake frequency: a few times a month Patient Tobacco Use Status: Former Tobacco user Tobacco use type: Cigarette Cigarette Packs Per Day: 0.5 Years Smoked: 10 e-Cigarette/Vaping Use: Never Used Second Hand Smoke Exposure: No service: No Current occupational status: retired Cognitive needs: No Hearing needs: No Vision needs: Yes Review of Systems Const All systems reviewed & are unremarkable except as noted in HPI and below Physical Exam Vital Signs: Last Vital Signs BP 140/80 H 12/06/24 11:23 BMI result Body Mass Index 25.8 Const General: comfortable and no acute distress Orientation/consciousness: patient oriented x3 HEENT Head: Yes normocephalic Mouth: Normal oral and palatal mucosa present Eyes EOM: EOMs intact bilaterally Neck Neck: Yes supple Resp Auscultation: clear to auscultation bilaterally Cardio Jugular venous distension: no JVD Rate: regular rate GI Palpation (GI): Soft to palpation Auscultation: normal bowel sounds General: Yes no CVA tenderness Back/Spine/Pelvis Back: no CVA tenderness Skin General skin exam: no rashes or lesions noted Neuro General: patient oriented x3 and moves all extremities Extrem General: Yes no pedal edema Results Reviewed Nephrology Results: Hgb 12.6 g/dl (12.0-16.0) 11/01/24 WBC 4.5 X10*3/uL (4.8-10.8) L 11/01/24 Plt Count 305 X10*3/uL (160-400) 11/01/24 Sodium 140 mmol/L (135-145) 11/01/24 Potassium 5.3 mmol/L (3.3-5.1) H 11/01/24 Chloride 111 mmol/L (96-108) H 11/01/24 Carbon Dioxide 25 mmol/L (22-29) 11/01/24 BUN 18 mg/dL (9-16) H 11/01/24 Creatinine 0.70 mg/dL (0.5-1.4) 11/01/24 Calcium 8.6 mg/dL (8.4-10.2) 11/01/24 Assessment & Plan Assessment & Plan (1) Hyperkalemia: Code(s): E87.5 - Hyperkalemia Category: Medical Plan Tressa has incidental hyperkalemia with the potassium going to 6 which subsequently improved to 5.3. Her serum potassium always had been normal before. She has no history of metabolic acidosis, hypokalemia, renal calculus. She is not a diabetic. She is not on JONI inhibitor, ARB, spironolactone, nonsteroidal anti-inflammatories. She does not consume excess high potassium containing food or salt substitute. Her hyperkalemia was detected at the time when she was taking fluconazole by mouth. She has no history of hyponatremia, hypotension or hypoglycemia. Association of hyperkalemia with fluconazole has been well described. Her renal functions are normal I ordered workup to calculate trans tubular potassium gradient along with serum cortisol and aldosterone levels. She has no family history of any renal disorders. I did not make any medication changes today. All these have been explained in detail. Further management is pending evolving data Orders: Orders Renin 2 Weeks E87.5 - Hyperkalemia Osmolality Urine 2 Weeks E87.5 - Hyperkalemia Cortisol Random 2 Weeks E87.5 - Hyperkalemia Aldosterone 2 Weeks E87.5 - Hyperkalemia Osmolality, Serum 2 Weeks E87.5 - Hyperkalemia Potassium Urine Random 2 Weeks E87.5 - Hyperkalemia Electrolytes 2 Weeks E87.5 - Hyperkalemia Coding Level of Care Code New Pt Level 4 (31092) Diagnoses Hyperkalemia E87.5
[2024-12-06 11:23] VITALS: BP 140/80; BMI 25.8
--- OUTSIDE RECORDS SUMMARY | 2024-12-06 12:36 | XMS_ITS | Clinical Summary ---
Author Organization [facility] Address [address] [place] [address] Phone Care Team Providers Care Class C Driver Name Role Phone Yue Alegria NP Primary Care Provider +1- [phone] Encounters Date Type Department Care Team Description 09/05/2024 8:00 AM EST - 09/05/2024 11:59 PM EST Hospital Encounter [facility] Ultrasound [address] [place] [address] RUQ abdominal pain Discharge Disposition: Home or Self Care from Last 3 Months Social History Tobacco Use Types Packs/Day Years Used Date Smoking Tobacco: Never Assessed Comments Unknown Sex and Gender Information Value Date Recorded Sex Assigned at Not on file Legal Sex Female 4:08 PM EST Gender Identity Not on file Sexual Orientation Not on file Plan of Treatment Health Maintenance Due Date Last Done Comments Cervical Cancer Screening: Pap Smear 1983 Breast Cancer Screening 04/29/2012 04/29/2010 Pneumococcal Vaccine: 50+ Years (2 of 2 - PCV) 12/16/2020 12/17/2019 Pneumococcal Vaccine: Pediatrics (0 to 5 Years) and At-Risk Patients (6 to 64 Years) (2 of 2 - PCV) 12/16/2020 12/17/2019 RSV Immunization Patients 60+ Years Old (1 - Risk 60-74 years 1-dose series) 2022 Cholesterol Screening (Lipid Panel) 09/15/2022 Colorectal Cancer Screening: Colonoscopy 09/15/2022 Depression Screening 09/15/2022 HIV Screening 09/15/2022 Hepatitis C Screening 09/15/2022 Social Influencers of Health Screening 09/15/2022 DTaP,Tdap,and Td Vaccines (2 - Td or Tdap) 12/24/2031 12/23/2021 Zoster Vaccines Completed 10/14/2020, 08/02/2020 COVID-19 Vaccine Completed 07/16/2024, 02/2023, 07/25/2022, Additional history exists Influenza Vaccine Completed 07/16/2024, , 07/25/2022, Additional history exists HIB Vaccines Aged Out No longer eligi ble based on patient's age to complete this topic HPV Vaccines Aged Out No longer eligi ble based on patient's age to complete this topic Hepatitis A Vaccines Aged Out No long er eligible based on patient's age to complete this topic Hepatitis B Vaccines Aged Out No long er eligible based on patient's age to complete this topic IPV Vaccines Aged Out No longer eligi ble based on patient's age to complete this topic MMR Vaccines Aged Out No longer eligi ble based on patient's age to complete this topic Meningococcal ACWY Vaccine Aged Out N o longer eligible based on patient's age to complete this topic Meningococcal B Vacine Aged Out No lo nger eligible based on patient's age to complete this topic RSV Immunization Patients Under 20 months Aged Out No longer eligible based on patient's age to complete this topic Varicella Vaccines Aged Out No longer eligible based on patient's age to complete this topic Procedures Procedure Name Priority Date/Time Associated Diagnosis Comments US ABDOMEN LIMITED Routine 09/05/2024 8: 35 AM EST RUQ abdominal pain from Last 3 Months Results * US Abdomen Limited (09/05/2024 8:35 AM EST) Anatomical Region Laterality Modality Body Ultrasound 09/05/2024 9:42 AM EST Impressions 09/05/2024 9:45 AM EST Limited study secondary to bowel gas. No cholelithiasis or biliary dilation. ??No free fluid. -------- FINAL REPORT -------- Dictated By: Mamadou Coyle Dictated Date: 09/05/2024 09:42 ET Assigned Physician: Mamadou Coyle Reviewed and Electronically Signed By: Mamadou Coyle Signed Date: 09/05/2024 09:45 ET Workstation ID: [id number] Transcribed By: Self Edit Transcribed Date: 09/05/2024 09:42 ET Narrative 09/05/2024 9:45 AM EST EXAMINATION: ABDOMEN ULTRASOUND, LIMITED CLINICAL INFORMATION: Right upper quadrant pain COMPARISON: None. TECHNIQUE: Ultrasound of the right upper quadrant FINDINGS: QUALITY: The study is limited. ??Bowel gas obscures some of the upper abdominal anatomy. PANCREAS: Most of the pancreas was obscured. ABDOMINAL AORTA/IVC: Portions of the IVC are visualized without a definite abnormality. ??The aorta is not well visualized. LIVER: The right lobe of the liver measures 14.1 cm. ??The liver contour appears smooth. ??The portal tracts are visualized. ??Sound penetrates through the liver to visualize the diaphragm. No suspicious focal liver lesion. BILIARY: There is no shadowing gallstone. ??There is a bright reflector associated with the gallbladder fundus possibly related to focal adenomyomatosis. ??This does not require any specific imaging follow-up. ??There is no pericholecystic fluid. COMMON BILE DUCT: The common duct measures 0.5 cm which is within normal limits. GALLBLADDER TENDERNESS: There is no reported tenderness to transducer pressure over the gallbladder. KIDNEYS: The right kidney measures at least 10.1 cm in greatest length. ??There is no dilation of the intrarenal collecting system. ??There is no suspicious right renal mass. ??No shadowing right renal calculus. FLUID: No intraperitoneal fluid demonstrated in the upper abdomen Procedure Note Mamadou Coyle MD - 09/05/2024 EXAMINATION: ABDOMEN ULTRASOUND, LIMITED CLINICAL INFORMATION: Right upper quadrant pain COMPARISON: None. TECHNIQUE: Ultrasound of the right upper quadrant FINDINGS: QUALITY: The study is limited. Bowel gas obscures some of the upperabdominal anatomy. PANCREAS: Most of the pancreas was obscured. ABDOMINAL AORTA/IVC: Portions of the IVC are visualized without a definiteabnormality. The aorta is not well visualized. LIVER: The right lobe of the liver measures 14.1 cm. The liver contourappears smooth. The portal tracts are visualized. Sound penetratesthrough the liver to visualize the diaphragm. No suspicious focal liver lesion. BILIARY: There is no shadowing gallstone. There is a bright reflectorassociated with the gallbladder fundus possibly related to focaladenomyomatosis. This does not require any specific imaging follow-up.There is no pericholecystic fluid. COMMON BILE DUCT: The common duct measures 0.5 cm which is within normallimits. GALLBLADDER TENDERNESS: There is no reported tenderness to transducerpressure over the gallbladder. KIDNEYS: The right kidney measures at least 10.1 cm in greatest length. There isno dilation of the intrarenal collecting system. There is no suspiciousright renal mass. No shadowing right renal calculus. FLUID: No intraperitoneal fluid demonstrated in the upper abdomen IMPRESSION: Limited study secondary to bowel gas. No cholelithiasis or biliary dilation. No free fluid. -------- FINAL REPORT -------- Dictated By: Mamadou Coyle Dictated Date: 09/05/2024 09:42 ET Assigned Physician: Mamadou Coyle Reviewed and Electronically Signed By: Mamadou Coyle Signed Date: 09/05/2024 09:45 ET Workstation ID: [id number] Transcribed By: Self Edit Transcribed Date: 09/05/2024 09:42 ET us Yue Alegria NP IM US PROCEDURES Final Re sult from Last 3 Months Insurance [id number] Care Teams Class C Driver Relationship Specialty Start Date End Date Yue Alegria NP [address] [place] [address] PCP - General Nurse Practitioner 08/28/24
== END 2024-12-06 12:15 | disposition home or self-care (01) ==
PROVIDERS: PCP Nurse Practitioner Primary Care; Referring Provider Nurse Practitioner Family; Visit Provider Internal Medicine Nephrology
DX: E87.5 Hyperkalemia (principal)
CPT/HCPCS: 99204

== ENCOUNTER → 2024-12-06 11:14 | Outpatient (BNVA) | payer OTHER, SELFPAY | PROVIDERS: PCP Nurse Practitioner Primary Care; Referring Provider Nurse Practitioner Family; Visit Provider Internal Medicine Nephrology ==

== ENCOUNTER 2024-12-18 10:29 | Outpatient (REF) | payer OTHER, SELFPAY ==
--- OUTSIDE RECORDS SUMMARY | 2024-12-18 12:45 | XMS_ITS | Clinical Summary ---
Author Organization [facility] Address [address] [place] [address] Phone Care Team Providers Care Barber Instructor Name Role Phone Yue Alegria NP Primary Care Provider +1- [phone] Social History Tobacco Use Types Packs/Day Years [...] on patient's age to complete this topic Insurance [facility] Care Teams Barber Instructor Relationship Specialty Start Date End Date Yue Alegria NP [address] [place] [id number] PCP - General Nurse Practitioner 08/28/24
[2024-12-18 18:33] LABS: Osmolality, Serum 288 mosm/kg (281-305)
[2024-12-18 18:44] LABS: Anion Gap 12 (12-20); Carbon Dioxide 24 mmol/L (22-29); Chloride 108 mmol/L (96-108); Potassium 4.5 mmol/L (3.3-5.1); Sodium 139 mmol/L (135-145)
[2024-12-18 19:00] LABS: Potassium Urine Random 71.5 mmol/L
[2024-12-18 19:02] LABS: Osmolality Urine 634 mosm/kg (373-1093)
[2024-12-18 19:19] LABS: Cortisol Random 5.8 ug/dL
[2024-12-29 13:20] LABS: Renin 1.22 ng/mL/h (0.25-5.82)
== END 2024-12-18 10:30 | disposition home or self-care (01) ==
LOC: HO.HKASLDS 10:29
PROVIDERS: Visit Provider Internal Medicine Nephrology
DX: E87.5 Hyperkalemia (principal)
CPT/HCPCS: 36415; 80051; 82088; 82533; 83930; 83935; 84133; 84244

== ENCOUNTER 2024-12-20 14:58 | Outpatient (AMB) | payer OTHER, SELFPAY ==
[2024-12-20 15:16] VITALS: BP 136/80; PULSE 73; O2SAT 100
--- NOTE | 2024-12-20 15:16 | HO.NEPHOV ---
Vital Signs 12/20/24 15:16 Height 5 ft 4 in BP 136/80 Blood Pressure Location Lt brachial Position Sitting Pulse 73 Pulse Source Pulse Oximeter Pulse Oximetry (%) 100 Oxygen Delivery Method Room Air Intake Visit Reasons: 2wks follow-up w/labs-Conf Assembler Tractor Required: No Accompanied by: Self / Same As Patient Allergies cyclobenzaprine Allergy (Intermediate, Verified 12/20/24 15:17) mental status change Penicillins Allergy (Intermediate, Verified 12/20/24 15:17) upset stomach, headaches mold Allergy (Unknown, Verified 12/20/24 15:17) Unknown Yeast Allergy (Unknown, Verified 12/20/24 15:17) Unknown enviromental Allergy (Mild, Uncoded 09/26/24 10:54) mental status chage dairy Allergy (Unknown, Uncoded 09/26/24 10:54) Unknown HPI Comments Details: Tressa was seen for F/U of hyperkalemia. 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 She has not been on any JONI inhibitor, ARB, spironolactone or nonsteroidal anti-inflammatories. She had take and Diflucan until October. She does not any nausea vomiting or diarrhea. She has not been using any salt substitute. She does not consume any excessive potassium containing diet. She has no history of metabolic acidosis, hypokalemia or renal calculus. She has history of Raynaud's disease but denies any other major autoimmune diseases affecting multiple organs. She maintains good hydration. Her renal function normal. Recently her serum potassium was found to be 6 weeks subsequently went repeated it had improved to 5.3 and now its normal [facility] Medical History Fibromuscular dysplasia Carotid stenosis MVP (mitral valve prolapse) Chronic headaches Neck pain Short of breath on exertion Chest pain History of squamous cell carcinoma ADHD TMJ (dislocation of temporomandibular joint) Fibromyalgia Mild asthma JASION (generalized anxiety disorder) Chronic GERD Surgical History H/O colonoscopy History of squamous cell carcinoma History of partial hysterectomy History of tubal ligation Family History Father Heart attack Hypercholesteremia Hypertension CHF (congestive heart failure) Mother Hypothyroidism Heart attack Tuberculosis Bladder cancer Breast cancer Pleurisy Sister Hypothyroidism Hypercholesteremia Spinal stenosis Arthritis Asthma Brother Hyperthyroidism Hypertension Hypercholesteremia Sister Hypercholesteremia Daughter Hypertension Hypercholesteremia ADHD Anxiety Myotonia congenita Son Myotonia congenita Son Myotonia congenita Social History Housing: House Alcohol intake: current Alcohol intake frequency: a few times a month Patient Tobacco Use Status: Former Tobacco user Tobacco use type: Cigarette Cigarette Packs Per Day: 0.5 Years Smoked: 10 e-Cigarette/Vaping Use: Never Used Second Hand Smoke Exposure: No service: No Current occupational status: retired Cognitive needs: No Hearing needs: No Vision needs: Yes Review of Systems Const All systems reviewed & are unremarkable except as noted in HPI and below Physical Exam Vital Signs: Last Vital Signs Pulse 73 12/20/24 15:16 BP 136/80 12/20/24 15:16 Pulse Ox 100 12/20/24 15:16 Oxygen Delivery Method Room Air 12/20/24 15:16 Const General: comfortable and no acute distress Orientation/consciousness: patient oriented x3 HEENT Head: Yes normocephalic Mouth: Normal oral and palatal mucosa present Eyes EOM: EOMs intact bilaterally Neck Neck: Yes supple Resp Auscultation: clear to auscultation bilaterally Cardio Jugular venous distension: no JVD Rate: regular rate GI Palpation (GI): Soft to palpation Auscultation: normal bowel sounds Skin General skin exam: no rashes or lesions noted Neuro General: patient oriented x3 and moves all extremities Extrem General: Yes no pedal edema Results Reviewed Nephrology Results: Hgb 12.6 g/dl (12.0-16.0) 11/01/24 WBC 4.5 X10*3/uL (4.8-10.8) L 11/01/24 Plt Count 305 X10*3/uL (160-400) 11/01/24 Sodium 139 mmol/L (135-145) 12/18/24 Potassium 4.5 mmol/L (3.3-5.1) 12/18/24 Chloride 108 mmol/L (96-108) 12/18/24 Carbon Dioxide 24 mmol/L (22-29) 12/18/24 BUN 18 mg/dL (9-16) H 11/01/24 Creatinine 0.70 mg/dL (0.5-1.4) 11/01/24 Calcium 8.6 mg/dL (8.4-10.2) 11/01/24 Assessment & Plan Assessment & Plan (1) Low serum cortisol level: Code(s): R79.89 - Other specified abnormal findings of blood chemistry Category: Medical Plan Tressa has incidental hyperkalemia with the potassium going to 6 which subsequently improved to 5.3 , now being normal. Her serum potassium always had been normal before. She has no history of metabolic acidosis, hypokalemia, renal calculus. She is not a diabetic. She is not on JONI inhibitor, ARB, spironolactone, nonsteroidal anti-inflammatories. She does not consume excess high potassium containing food or salt substitute. Her hyperkalemia was detected at the time when she was taking fluconazole by mouth. She has no history of hyponatremia, hypotension or hypoglycemia. Association of hyperkalemia with fluconazole has been well described. Her renal functions are normal . Her serum cortisol is low normal. I referred her to Dr Maloney Color Print Inspector in [facility]. Her aldosterone levels are pending. She has no family history of any renal disorders. I did not make any medication changes today. All these have been explained in detail. Orders: Referrals Endocrinology Referral R79.89 - Other specified abnormal findings of blood chemistry Coding Level of Care Code Est Pt Level 4 (58637) Diagnoses Low serum cortisol level R79.89
--- OUTSIDE RECORDS SUMMARY | 2024-12-20 18:31 | XMS_ITS | Clinical Summary ---
Author Organization [facility] Address [address] [place] [address] Phone Care Team Providers Care Continuous Crusher Operator Name Role Phone Yue Alegria NP Primary Care Provider +1- [phone] Social History Tobacco Use Types Packs/Day Years [...] patient's age to complete this topic Insurance [facility] Care Teams Continuous Crusher Operator Relationship Specialty Start Date End Date Yue Alegria NP [address] [place] [id number] PCP - General Nurse Practitioner 08/28/24
== END 2024-12-20 15:48 | disposition home or self-care (01) ==
PROVIDERS: PCP Nurse Practitioner Primary Care; Visit Provider Internal Medicine Nephrology
DX: R79.89 Other specified abnormal findings of blood chemistry (principal)
CPT/HCPCS: 99214

== ENCOUNTER 2025-01-15 15:36 | Outpatient (AMB) | payer OTHER, SELFPAY ==
[2025-01-15 15:38] VITALS: BP 130/80; PULSE 97; O2SAT 100; BMI 25.7
--- NOTE | 2025-01-15 15:38 | A.OFFVIS_ITS ---
Vital Signs 01/15/25 15:38 Height 5 ft 4 in Weight 149 lb 14.629 oz BMI 25.7 BP 130/80 Blood Pressure Location Rt brachial Position Sitting Pulse 97 Pulse Source Pulse Oximeter Pulse Oximetry (%) 100 Oxygen Delivery Method Room Air Intake Visit Reasons: Other specified abnormal findings of blood chemi Intake Note: New Patient presents here today for Abnormal Findings Of Blood Chemistry: Occupational Medicine Specialist Required: No Accompanied by: Self / Same As Patient Allergies cyclobenzaprine Allergy (Intermediate, Verified 01/15/25 15:44) mental status change Penicillins Allergy (Intermediate, Verified 01/15/25 15:44) upset stomach, headaches mold Allergy (Unknown, Verified 01/15/25 15:44) Unknown Yeast Allergy (Unknown, Verified 01/15/25 15:44) Unknown enviromental Allergy (Mild, Uncoded 01/15/25 15:44) mental status chage dairy Allergy (Unknown, Uncoded 01/15/25 15:44) Unknown Medication List - Last Reconciled 01/15/25 by Anuja Maloney MD budesonide 90 mcg/actuation (Pulmicort Flexhaler) 1 inh inhalation BID dextroamphetamine-amphetamine 30 mg (Adderall) 30 mg PO DAILY estradiol 1 patch transdermal 2XW progesterone micronized 100 mg PO QAM HPI Comments Details: 64-year-old female here today for initial evaluation of low cortisol level. Otherwise history of asthma, ADHD Episode of hyperkalemia in Oct 2024 , K level of 5.3, sodium has been normal Apparently high in August and September 2024 high done at [facility] on routine labs During workup cortisol was tested by Nephrology, noted to be at 5.8 at 10:30 on 12/18/2024. She has not been on any JONI inhibitor, ARB, spironolactone or nonsteroidal anti- inflammatories. She did take Diflucan until October for concerns of oral thrush. unclear how long but she is saying since 14 August alteranting between Diflucan and Nystatin. She does not any nausea vomiting or diarrhea. She has not been using any salt substitute. She does not consume any excessive potassium containing diet. She has no history of metabolic acidosis, hypokalemia or renal calculus. Her renal function normal. Reports intermittent dizziness and lightheadedness for 2 months lost 7 lbs since summer 2023, but prior to that she had agained 6 lbs in 2023, so more or less back to her baseline Occasional abd pain chronic disgestive issues no hypotension Steroid use Was on a short course of prednisone at some point many years ago for poison maryanne Has history of asthma , on pulmoicort inhaler, no severe exacerbations requiring prednisone Cortisone shot in knee once in 2023 No hydrocortisone cream. 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 30 AM or 5 30 AM Physical exam General: sitting comfortably in no acute distress HEENT: normocephalic/atraumatic, moist oral mucosa Neck: supple, symmetrical, no thyromegaly , no dorsocervical or supraclavicular fat pads Cardiac: normal heart sounds Pulm: normal breath sounds B/L, no added breath sounds Abd: not distended, no tenderness Laboratory Tests 09/12/23 11/01/24 12/18/24 09:38 09:37 10:36 Sodium 140 139 Potassium 5.3 H D 4.5 Creatinine 0.70 Estimated GFR > 60 Renin 1.22 Aldosterone 20 TSH 2.11 Random Cortisol 5.8 PFSH Medical History Fibromuscular dysplasia Carotid stenosis MVP (mitral valve prolapse) Chronic headaches Neck pain Short of breath on exertion Chest pain History of squamous cell carcinoma ADHD TMJ (dislocation of temporomandibular joint) Fibromyalgia Mild asthma JAISON (generalized anxiety disorder) Chronic GERD Surgical History H/O colonoscopy History of squamous cell carcinoma History of partial hysterectomy History of tubal ligation Family History Father Heart attack Hypercholesteremia Hypertension CHF (congestive heart failure) Mother Hypothyroidism Heart attack Tuberculosis Bladder cancer Breast cancer Pleurisy Sister Hypothyroidism Hypercholesteremia Spinal stenosis Arthritis Asthma Brother Hyperthyroidism Hypertension Hypercholesteremia Sister Hypercholesteremia Daughter Hypertension Hypercholesteremia ADHD Anxiety Myotonia congenita Son Myotonia congenita Son Myotonia congenita Social History Housing: House Alcohol intake: current Alcohol intake frequency: a few times a month Patient Tobacco Use Status: Former Tobacco user Tobacco use type: Cigarette Cigarette Packs Per Day: 0.5 Years Smoked: 10 e-Cigarette/Vaping Use: Never Used Second Hand Smoke Exposure: No service: No Current occupational status: retired Cognitive needs: No Hearing needs: No Vision needs: Yes Physical Exam Vital Signs: Last Vital Signs Pulse 97 01/15/25 15:38 BP 130/80 01/15/25 15:38 Pulse Ox 100 01/15/25 15:38 Oxygen Delivery Method Room Air 01/15/25 15:38 BMI result Body Mass Index 25.7 Assessment & Plan Assessment & Plan (1) Hyperkalemia: Code(s): E87.5 - Hyperkalemia Category: Medical Plan: See below (2) Low serum cortisol level: Code(s): R79.89 - Other specified abnormal findings of blood chemistry Category: Medical Plan: 64-year-old female with a history of asthma, ADHD, who is here today for initial evaluation of low cortisol level. She had an episode of hyperkalemia back in October 2024, when blood work showed potassium level of 5.3, she was referred to Nephrology for further evaluation who did workup which showed low cortisol of 5.3 at 10:30. Cortisol level fluctuates during the day, with the highest levels detected early at 08:00 labs, hence we will repeat these labs flat examiner. A value of 5.3 at 10:13 is not necessarily low. We will also check her ACTH and DHEA-S levels. She did have of course of Diflucan preceding this episode of hyperkalemia, and Diflucan has been associated with hyperkalemia in the setting of adrenal insufficiency. She does use a Pulmicort inhaler which is a steroid inhaler twice daily every day for asthma history. I have asked her to hold this inhaler prior to doing testing for a day. Exogenous steroid use can suppress internal steroid levels. Though usually inhalers do not have much of a systemic effect. She is otherwise not on any frequent prednisone courses. She had a cortisone shot last drain her knee but no other frequent usage. Reassuringly her kat sterone level was noted to be on the higher side on the same labs in December 2024, if she had primary adrenal insufficiency, aldosterone would be low. On exam she does not have any hyperpigmentation to suggest Doroteo's disease. She has nonspecific symptoms, regardless we will test her levels. If cortisol in the morning is low, we will proceed with cosyntropin stimulation test. Plan: -check cortisol, acth, DHEA-S level early a.m. 8 in the morning -we will also check for thyroid function tests with TSH and free T4 as patient reports history of positive TPO antibodies Plan I spent 45 minutes in reviewing the record, seeing the patient and documenting in the medical record. Orders: Orders Cortisol Random Today E87.5 - Hyperkalemia, R79.89 - Other specified abnormal findings of blood chemistry Thyroid Stimulating Hormone Today E87.5 - Hyperkalemia, R79.89 - Other specified abnormal findings of blood chemistry Free T4 (Free Thyroxine) Today E87.5 - Hyperkalemia, R79.89 - Other specified abnormal findings of blood chemistry Adrenocorticotropic Hormone Today E87.5 - Hyperkalemia, R79.89 - Other specified abnormal findings of blood chemistry DHEA Sulfate Today E87.5 - Hyperkalemia, R79.89 - Other specified abnormal findings of blood chemistry Basic Metabolic Panel Today E87.5 - Hyperkalemia, R79.89 - Other specified abnormal findings of blood chemistry Patient Instructions: Do early AM blood work at 8 AM Coding Level of Care Code New Pt Level 4 (81018) Diagnoses Hyperkalemia E87.5 Low serum cortisol level R79.89 Time Spent (min) 45
--- OUTSIDE RECORDS SUMMARY | 2025-01-15 18:28 | XMS_ITS | Clinical Summary ---
Author Organization [facility] Address [address] [place] [address] Phone Care Team Providers Care Director Game Name Role Phone Yue Alegria NP Primary Care Provider +1- [phone] Social History Tobacco Use Types Packs/Day Years [...] patient's age to complete this topic Insurance [facility] Care Teams Director Game Relationship Specialty Start Date End Date Yue Alegria NP [address] [place] [id number] PCP - General Nurse Practitioner 08/28/24
== END 2025-01-15 16:25 | disposition home or self-care (01) ==
LOC: HO.ENCR 15:36
PROVIDERS: PCP Nurse Practitioner Primary Care; Visit Provider Student in an Organized Health Care Education/Training Program
DX: E87.5 Hyperkalemia (principal); R79.89 Other specified abnormal findings of blood chemistry
CPT/HCPCS: 99204

== ENCOUNTER → 2025-01-15 15:36 | Outpatient (BNVA) | payer OTHER, SELFPAY | PROVIDERS: PCP Nurse Practitioner Primary Care; Visit Provider Student in an Organized Health Care Education/Training Program ==

== ENCOUNTER 2025-01-18 07:02 | Outpatient (REF) | payer OTHER, SELFPAY ==
[2025-01-18 08:35] LABS: Anion Gap 9 (12-20); Blood Urea Nitrogen 19 mg/dL (9-16); Calcium 8.6 mg/dL (8.4-10.2); Carbon Dioxide 27 mmol/L (22-29); Chloride 109 mmol/L (96-108); Estimated Glomerular Filt Rate > 60; Glucose Random 73 mg/dL (60-115); Potassium 4.8 mmol/L (3.3-5.1); Sodium 140 mmol/L (135-145)
[2025-01-18 08:38] LABS: Free T4 (Free Thyroxine) 0.93 ng/dL (0.71-1.85); Thyroid Stimulating Hormone 2.31 uIU/mL (0.32-4.0)
[2025-01-18 13:28] LABS: Cortisol Random 10.4 ug/dL
[2025-01-19 06:58] LABS: DHEA Sulfate 55 mcg/dL (9-118)
[2025-01-23 20:43] LABS: Immunoglobulin E 106 kU/L (<OR=114)
[2025-01-23 22:18] LABS: Adrenocorticotropic Hormone 22 pg/mL (6-50)
== END 2025-01-18 07:03 | disposition home or self-care (01) ==
LOC: HO.LAB 07:02
PROVIDERS: Nurse Practitioner Family; PCP Nurse Practitioner Primary Care; Visit Provider Student in an Organized Health Care Education/Training Program
DX: E87.5 Hyperkalemia (principal); R79.89 Other specified abnormal findings of blood chemistry; Z91.09 Other allergy status, other than to drugs and biological substances
CPT/HCPCS: 36415; 80048; 82024; 82533; 82627; 82785; 84439; 84443

== ENCOUNTER 2025-01-31 07:34 | Outpatient (RCR) | payer OTHER, SELFPAY ==
[2025-01-31 07:47] VITALS: BP 107/55; PULSE 71; RESP 16; TEMP 36.8; O2SAT 100
[2025-01-31] MEDS: Cosyntropin 0.25 MG VIAL IVPUSH (08:08)
== END 2025-01-31 09:09 | disposition home or self-care (01) ==
LOC: HO.INF 07:34
PROVIDERS: Visit Provider Student in an Organized Health Care Education/Training Program
DX: R79.89 Other specified abnormal findings of blood chemistry (principal)
CPT/HCPCS: 36415; 82533; 96374; J0834

== ENCOUNTER 2025-02-18 08:34 | Outpatient (AMB) | payer OTHER, SELFPAY ==
[2025-02-18 08:36] VITALS: BP 132/80; PULSE 61; O2SAT 98; BMI 26.5
--- NOTE | 2025-02-18 08:36 | MHC.OFFVIS ---
Vital Signs 02/18/25 08:36 Height 5 ft 4 in Weight 154 lb 5.177 oz BMI 26.5 BP 132/80 Blood Pressure Location Lt brachial Position Sitting Pulse 61 Pulse Source Pulse Oximeter Pulse Oximetry (%) 98 Oxygen Delivery Method Room Air Intake Visit Reasons: Other specified abnormal findings of blood chemi Intake Note: Patient present today for Other specified abnormal findings of blood chemistry. Unit Controller Required: No Accompanied by: Self / Same As Patient Allergies cyclobenzaprine Allergy (Intermediate, Verified 02/18/25 08:40) mental status change Penicillins Allergy (Intermediate, Verified 02/18/25 08:40) upset stomach, headaches mold Allergy (Unknown, Verified 02/18/25 08:40) Unknown Yeast Allergy (Unknown, Verified 02/18/25 08:40) Unknown enviromental Allergy (Mild, Uncoded 02/18/25 08:40) mental status chage dairy Allergy (Unknown, Uncoded 02/18/25 08:40) Unknown Medication List - Last Reconciled 02/18/25 by Anuja Maloney MD budesonide 90 mcg/actuation (Pulmicort Flexhaler) 1 inh inhalation BID dextroamphetamine-amphetamine 30 mg (Adderall) 30 mg PO DAILY estradiol 1 patch transdermal 2XW progesterone micronized 100 mg PO QAM HPI Comments Details: 64-year-old female here today for follow up of low cortisol level. Otherwise history of asthma, ADHD HPI from prior visit Episode of hyperkalemia in Oct 2024 , K level of 5.3, sodium has been normal Apparently high in August and September 2024 high done at [facility] on routine labs During workup cortisol was tested by Nephrology, noted to be at 5.8 at 10:30 on 12/18/2024. She has not been on any JONI inhibitor, ARB, spironolactone or nonsteroidal anti-inflammatories. She did take Diflucan until October for concerns of oral thrush. unclear how long but she is saying since 14 August alteranting between Diflucan and Nystatin. She does not any nausea vomiting or diarrhea. She has not been using any salt substitute. She does not consume any excessive potassium containing diet. She has no history of metabolic acidosis, hypokalemia or renal calculus. Her renal function normal. Reports intermittent dizziness and lightheadedness for 2 months lost 7 lbs since summer 2023, but prior to that she had agained 6 lbs in 2023, so more or less back to her baseline Occasional abd pain chronic digestive issues no hypotension Steroid use Was on a short course of prednisone at some point many years ago for poison maryanne Has history of asthma , on pulmoicort inhaler, no severe exacerbations requiring prednisone Cortisone shot in knee once in 2023 No hydrocortisone cream. 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 While the cortisol level is not concerning, because it was between that range of 3-15 mcg/dL aware if there is concern for adrenal insufficiency guidelines usually recommend performing a cosyntropin stimulation test. Cosyntropin stimulation testing done 01/31/2025 showed robust results with baseline cortisol of 16.3, with cortisol at 30 minutes going up to 28.9 and 60 minutes going up to 33.3. No concern for adrenal insufficiency. Physical exam General: sitting comfortably in no acute distress HEENT: normocephalic/atraumatic, moist oral mucosa Neck: supple, symmetrical, no thyromegaly , no dorsocervical or supraclavicular fat pads Cardiac: normal heart sounds Pulm: normal breath sounds B/L, no added breath sounds Abd: not distended, no tenderness Laboratory Tests 09/12/23 11/01/24 12/18/24 09:38 09:37 10:36 Sodium 140 139 Potassium 5.3 H D 4.5 Creatinine 0.70 Estimated GFR > 60 Renin 1.22 Aldosterone 20 TSH 2.11 Random Cortisol 5.8 Laboratory Tests 01/18/25 01/31/25 07:20 08:07 Sodium 140 Potassium 4.8 Creatinine 0.77 Estimated GFR > 60 Random Glucose 73 Calcium 8.6 TSH 2.31 Free T4 0.93 DHEA Sulfate 55 Random Cortisol 10.4 Cortisol Baseline 16.3 Cortisol 30 Minute 28.9 Cortisol 60 Minute 33.3 ACTH 22 PFSH Medical History Fibromuscular dysplasia Carotid stenosis MVP (mitral valve prolapse) Chronic headaches Neck pain Short of breath on exertion Chest pain History of squamous cell carcinoma ADHD TMJ (dislocation of temporomandibular joint) Fibromyalgia Mild asthma JAISON (generalized anxiety disorder) Chronic GERD Surgical History H/O colonoscopy History of squamous cell carcinoma History of partial hysterectomy History of tubal ligation Family History Father Heart attack Hypercholesteremia Hypertension CHF (congestive heart failure) Mother Hypothyroidism Heart attack Tuberculosis Bladder cancer Breast cancer Pleurisy Sister Hypothyroidism Hypercholesteremia Spinal stenosis Arthritis Asthma Brother Hyperthyroidism Hypertension Hypercholesteremia Sister Hypercholesteremia Daughter Hypertension Hypercholesteremia ADHD Anxiety Myotonia congenita Son Myotonia congenita Son Myotonia congenita Social History Housing: House Alcohol intake: current Alcohol intake frequency: a few times a month Patient Tobacco Use Status: Former Tobacco user Tobacco use type: Cigarette Cigarette Packs Per Day: 0.5 Years Smoked: 10 e-Cigarette/Vaping Use: Never Used Second Hand Smoke Exposure: No service: No Current occupational status: retired Cognitive needs: No Hearing needs: No Vision needs: Yes Assessment & Plan Assessment & Plan (1) Low serum cortisol level: Code(s): R79.89 - Other specified abnormal findings of blood chemistry Category: Medical Plan: 64-year-old female with a history of asthma, ADHD, who is here today for initial evaluation of low cortisol level. She had an episode of hyperkalemia back in October 2024, when blood work showed potassium level of 5.3, she was referred to Nephrology for further evaluation who did workup which showed low cortisol of 5.3 at 10:30. 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 A value of 5.3 at 10:13 is not necessarily low. She did have of course of Diflucan preceding this episode of hyperkalemia, and Diflucan has been associated with hyperkalemia in the setting of adrenal insufficiency. She does use a Pulmicort inhaler which is a steroid inhaler twice daily every day for asthma history. we asked her to hold this inhaler prior to testing. Exogenous steroid use can suppress internal steroid levels. Though usually inhalers do not have much of a systemic effect. She is otherwise not on any frequent prednisone courses. She had a cortisone shot last year her knee but no other frequent usage. Reassuringly her aldosterone level was noted to be on the higher side on the same labs in December 2024, if she had primary adrenal insufficiency, aldosterone would be low. On exam she does not have any hyperpigmentation to suggest Hargill's disease. She has nonspecific symptoms, Labs from 01/18/2025 showed normal electrolytes, kidney function, normal thyroid function, cortisol of 10.4 at 07:20 with ACTH of 22, an DHEA-S of 55. While the cortisol level is not concerning, because it was between that range of 3-15 mcg/dL aware if there is concern for adrenal insufficiency guidelines usually recommend performing a cosyntropin stimulation test. Cosyntropin stimulation testing done 01/31/2025 showed robust results with baseline cortisol of 16.3, with cortisol at 30 minutes going up to 28.9 and 60 minutes going up to 33.3. No concern for adrenal insufficiency. At this time there is no concern for adrenal insufficiency and patient does not need endocrine follow up. We will discharge her back to her primary care physician. Plan See above Coding Level of Care Code Est Pt Level 3 (52222) Diagnoses Low serum cortisol level R79.89
--- OUTSIDE RECORDS SUMMARY | 2025-02-18 08:54 | XMS_ITS | Clinical Summary ---
Author Organization [facility] Address [address] [place] [address] Phone Care Team Providers Care Buffer Automatic Name Role Phone Yue Alegria NP Primary Care Provider [phone]- [phone] Social History Tobacco Use Types Packs/Day Years [...] 2 - PCV) 12/16/2020 12/17/2019 RSV Immunization Adult Patients (1 - Risk 60-74 years 1-dose series) [...] age to complete this topic Meningococcal B Vaccine Aged Out No l onger eligible based on patient's age to complete this topic RSV Immunization Patients Under 20 months Aged Out No longer eligible based on patient's age to complete this topic Varicella Vaccines Aged Out No longer eligible based on patient's age to complete this topic Insurance [facility] Care Teams Buffer Automatic Relationship Specialty Start Date End Date Yue Alegria NP [address] [place] [id number] PCP - General Nurse Practitioner 08/28/24
== END 2025-02-18 08:51 | disposition home or self-care (01) ==
LOC: HO.ENCR 08:35
PROVIDERS: PCP Nurse Practitioner Primary Care; Visit Provider Student in an Organized Health Care Education/Training Program
DX: R79.89 Other specified abnormal findings of blood chemistry (principal)
CPT/HCPCS: 99213

== ENCOUNTER 2025-03-04 11:00 | Outpatient (AMB) | payer OTHER, SELFPAY ==
--- NOTE | 2025-03-04 11:13 | MHC.OFFVIS ---
Vital Signs 03/04/25 11:14 Height 5 ft 4 in Weight 149 lb 14.629 oz BMI 25.7 BP 144/72 H Blood Pressure Location Lt brachial Position Sitting Pulse 62 Intake Visit Reasons: Gastroesophageal reflux disease (GERD) Intake Note: Tressa presents in the office as a new patient for GERD. CC: states she has issues with moving her bowels, digestion, and reflux. She is not interested in being put on medications. Vp Digital Marketing Social Media And Crm Required: No Allergies cyclobenzaprine Allergy (Intermediate, Verified 03/04/25 11:15) mental status change Penicillins Allergy (Intermediate, Verified 03/04/25 11:15) upset stomach, headaches enviromental Allergy (Mild, Uncoded 03/04/25 11:15) mental status chage HPI Comments Details: 65 y.o F with PMH of chiari I malformation, intermittent asthma, who is her for reflux sx and bloating. Report retrosternal burning at least once a month that lasts a few days assoc with nausea, bloating, belching. No odynophagia, dysphagia abd pain. No change in bowel habits. Has 4 BMs per week. Stool ranges from soft to hard. Manages reflux with just avoiding dietary triggers. Avoids any antacids due to fear of upsetting her stomach. Reports gets GI upset easily from meds. Diet: balanced. Good amount of fiber, healthy fats. Last colo 2020 - [facility] [place] does not recall interval. [facility] Medical History Fibromuscular dysplasia Carotid stenosis MVP (mitral valve prolapse) Chronic headaches Neck pain Short of breath on exertion Chest pain History of squamous cell carcinoma ADHD TMJ (dislocation of temporomandibular joint) Fibromyalgia Mild asthma JAISON (generalized anxiety disorder) Chronic GERD Surgical History H/O colonoscopy History of squamous cell carcinoma History of partial hysterectomy History of tubal ligation Family History Father Heart attack Hypercholesteremia Hypertension CHF (congestive heart failure) Mother Hypothyroidism Heart attack Tuberculosis Bladder cancer Breast cancer Pleurisy Sister Hypothyroidism Hypercholesteremia Spinal stenosis Arthritis Asthma Brother Hyperthyroidism Hypertension Hypercholesteremia Sister Hypercholesteremia Daughter Hypertension Hypercholesteremia ADHD Anxiety Myotonia congenita Son Myotonia congenita Son Myotonia congenita Social History Housing: House Alcohol intake: current Alcohol intake frequency: a few times a month Patient Tobacco Use Status: Former Tobacco user Tobacco use type: Cigarette Cigarette Packs Per Day: 0.5 Years Smoked: 10 e-Cigarette/Vaping Use: Never Used Second Hand Smoke Exposure: No service: No Current occupational status: retired Cognitive needs: No Hearing needs: No Vision needs: Yes Review of Systems Const All systems reviewed & are unremarkable except as noted in HPI and below Physical Exam Vital Signs: Last Vital Signs Pulse 62 03/04/25 11:14 BP 144/72 H 03/04/25 11:14 BMI result Body Mass Index 25.7 No apparent distress Nonicteric Abdomen soft, nondistended Alert and oriented x3, normal gait Assessment & Plan Assessment & Plan (1) GERD (gastroesophageal reflux disease): Code(s): K21.9 - Gastro-esophageal reflux disease without esophagitis Category: Medical Plan Reviewed with the pt that for intermittent sx, H2 mireille may be a better choice than PPI. Will also get barium swallow for evaluation. No red flags to warrant immediate egd at present. Plan: - Barium swallow - famotidine 20 as needed - handout given for trigger foods - pt also requested to post results of prev colo at [facility] [place] in [facility] portal follow up 3 months Orders: Orders [place] barium swallow Today K21.9 - Gastro-esophageal reflux disease without esophagitis Medications: New famotidine (Pepcid) 20 mg PO BEDTIME 90 days PRN 90 tabs 0RF heartburn Coding Level of Care Code New Pt Level 4 (44275) Diagnoses GERD (gastroesophageal reflux disease) K21.9
[2025-03-04 11:14] VITALS: BP 144/72; PULSE 62; BMI 25.7
--- OUTSIDE RECORDS SUMMARY | 2025-03-04 11:47 | XMS_ITS | Clinical Summary ---
Author Organization [facility] Address [address] [place] [address] Phone Care Team Providers Care Traffic Or System Dispatcher Name Role Phone Yue Alegria NP Primary Care Provider [phone]- [phone] Social History Tobacco Use Types Packs/Day Years [...] patient's age to complete this topic Insurance [facility] Care Teams Traffic Or System Dispatcher Relationship Specialty Start Date End Date Yue Alegria NP [address] [place] [id number] PCP - General Nurse Practitioner 08/28/24
== END 2025-03-04 11:39 | disposition home or self-care (01) ==
LOC: HO.HGI 11:00
PROVIDERS: PCP Nurse Practitioner Primary Care; Visit Provider Internal Medicine
DX: K21.9 Gastro-esophageal reflux disease without esophagitis (principal)
CPT/HCPCS: 99204

== ENCOUNTER → 2025-03-04 11:00 | Outpatient (BNVA) | payer OTHER, SELFPAY | PROVIDERS: PCP Nurse Practitioner Primary Care; Visit Provider Internal Medicine ==

== ENCOUNTER 2025-04-17 08:28 | Outpatient (AMB) | payer OTHER, SELFPAY ==
--- OUTSIDE RECORDS SUMMARY | 2025-04-17 08:32 | XMS_ITS | Clinical Summary ---
Author Organization [facility] Address [address] [place] [address] Phone Care Team Providers Care Station Installer And Repairer Name Role Phone Yue Alegria NP Primary Care Provider +1- [phone] Social History Tobacco Use Types Packs/Day Years [...] 09/15/2022 Social Influencers of Health Screening 09/15/2022 Influenza Vaccine (#1) 2025 4, 07/21/2023, 07/25/2022, Additional history exists DTaP,Tdap,and Td Vaccines (2 - Td or Tdap) 12/24/2031 12/23/2021 Zoster Vaccines Completed 10/14/2020, 08/02/2020 COVID-19 Vaccine Completed 07/16/2024, 02/2023, 07/25/2022, Additional history exists HIB Vaccines Aged [...] patient's age to complete this topic Insurance [facility] Care Teams Station Installer And Repairer Relationship Specialty Start Date End Date Yue Alegria NP [address] [place] [address] PCP - General Nurse Practitioner 08/28/24
[2025-04-17 08:41] VITALS: BP 140/78; PULSE 72; O2SAT 99; BMI 26.3
--- NOTE | 2025-04-17 08:41 | MHC.OFFVIS ---
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 The headaches have improved, and she reports no current headache issues. Previously, she experienced dizziness particularly when moving her head while on the ground, which was not described as room-spinning vertigo but rather a brief disorientation. The dizziness seems to be associated with physical activity, particularly with rapid head movements. The patient underwent environmental allergy testing that indicated no food allergies but revealed multiple environmental allergies. She speculated feeling better following mold treatment at home and continues to seek management for suspected mold allergies despite unclear test results. She desires further allergy immunotherapy. She mentioned a history of vertigo and current management with significant lifestyle changes. The patient's fluid intake was discussed due to suspicions of dehydration, involving the consumption of approximately four 20-ounce Yeti bottles of water daily. Medical History: - Environmental allergies - Headache - Dizziness - Mild mitral valve regurgitation - Attention Deficit Disorder (ADD) - Excessive perspiration Medications: - Estradiol cream for hormone regulation - Adderall for Attention Deficit Disorder (ADD) Family History: - with history of high blood pressure, high cholesterol, and Attention Deficit Hyperactivity Disorder (ADHD) Social History - Retired, previously engaged in volunteering. - Active lifestyle with an attempt to incorporate more exercises. - Reports excessive sweating and fluid intake management. - Experience and practices healthy eating habits with a nutrition-conscious approach, including growing a home garden. Review of Systems - Neurological: Reports dizziness, denies current headache. - Cardiovascular: Reports occasional palpitations. - Dermatological: Denies skin allergies or reactions. - Musculoskeletal: Reports toe numbness and flat feet complications. - Psychiatric: Denies anxiety, reports ADD. - General: Reports improved sleep pattern. Medication History - Estradiol cream: Patient notes possible calming effect and better sleep. - Adderall: Taken for ADD, reported improvement in attention and day-to-day functioning. Results - Allergy testing indicating no food allergies but multiple environmental allergies. - Previous labs showing normal kidney function, sodium, and potassium levels with slight dehydration indicated by BUN levels. [facility] Medical History Fibromuscular dysplasia Carotid stenosis MVP (mitral valve prolapse) Chronic headaches Neck pain Short of breath on exertion Chest pain History of squamous cell carcinoma ADHD TMJ (dislocation of temporomandibular joint) Fibromyalgia Mild asthma JAISON (generalized anxiety disorder) Chronic GERD Surgical History H/O colonoscopy History of squamous cell carcinoma History of partial hysterectomy History of tubal ligation Family History Father Heart attack Hypercholesteremia Hypertension CHF (congestive heart failure) Mother Hypothyroidism Heart attack Tuberculosis Bladder cancer Breast cancer Pleurisy Sister Hypothyroidism Hypercholesteremia Spinal stenosis Arthritis Asthma Brother Hyperthyroidism Hypertension Hypercholesteremia Sister Hypercholesteremia Daughter Hypertension Hypercholesteremia ADHD Anxiety Myotonia congenita Son Myotonia congenita Son Myotonia congenita Social History Housing: House Alcohol intake: current Alcohol intake frequency: a few times a month Patient Tobacco Use Status: Former Tobacco user Tobacco use type: Cigarette Cigarette Packs Per Day: 0.5 Years Smoked: 10 e-Cigarette/Vaping Use: Never Used Second Hand Smoke Exposure: No service: No Current occupational status: retired Cognitive needs: No Hearing needs: No Vision needs: Yes Physical Exam Vital Signs: Last Vital Signs Pulse 72 04/17/25 08:41 BP 140/78 H 04/17/25 08:41 Pulse Ox 99 04/17/25 08:41 Oxygen Delivery Method Room Air 04/17/25 08:41 BMI result Body Mass Index 26.3 Const General: cooperative and no acute distress Orientation/consciousness: patient oriented x3 Resp Effort & Inspection: normal respiratory effort and able to speak in complete sentences Neuro Other: A&O, no noticeable STM lapses. General: patient oriented x3 Cranial nerves: Yes CN's II-XII intact bilaterally Cognition (Neuro): normal cognition Psych Appearance: grossly normal Mental Status: mental status grossly normal Speech and movement: Normal speech and movement present Affect: normal affect Attitude: cooperative Assessment & Plan Assessment & Plan (1) Headache: Code(s): R51.9 - Headache, unspecified Category: Medical Qualifiers: Headache type: other headache syndrome Qualified Code(s): G44.89 - Other headache syndrome (2) Chiari I malformation: Code(s): G93.5 - Compression of brain Category: Medical (3) Vertigo: Code(s): R42 - Dizziness and giddiness Category: Medical (4) Peripheral sensory-motor axonal polyneuropathy: Code(s): G60.8 - Other hereditary and idiopathic neuropathies Category: Medical Plan Discussion Notes We discussed the patient's improvement in headache symptoms and continued dizziness management. We considered potential causes of dizziness, including dehydration and previous vertigo. I explained the significance of balanced electrolyte intake and advised considering electrolyte supplements like Liquid IV for hydration balance. We also discussed the patient's environmental allergies and the effectiveness of existing mold treatments within her home. I emphasized the importance of ongoing allergy management and the need for re-evaluation and potential immunotherapy. We addressed her successful adherence to a hormone regulation regimen and medication for ADD, with acknowledgement of the improvement in her sleep pattern and daily focus. Patient was informed and verbally consented to the use of an ambient scribe for clinic note documentation during this visit. Plan - Continue monitoring of headache status, no additional intervention needed at this time as symptoms have improved. - Suggested ongoing management of dizziness through hydration balance, regular fluid and electrolyte intake. 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 - Reinforced Adderall for ADD, acknowledging the positive outcome in symptoms. - Recommended neurology follow-up in six to nine months to assess the progression of symptoms and effect of any treatment changes. Patient Instructions - Maintain hydration with added electrolytes like Liquid IV. - Continue environmental allergy management. - Apply estradiol cream as directed. - Take Adderall for ADD as prescribed. - Follow a stable sleep and wake schedule. - Monitor dizziness and avoid rapid head movements during activities. - Return for follow-up in six to nine months. Coding Level of Care Code Est Pt Level 4 (87255) Diagnoses Other headache syndrome G44.89 Headache type: other headache syndrome Chiari I malformation G93.5 Vertigo R42 Peripheral sensory-motor axonal polyneuropathy G60.8
== END 2025-04-17 09:22 | disposition home or self-care (01) ==
LOC: HO.HSMS 08:29
PROVIDERS: PCP Nurse Practitioner Primary Care; Visit Provider Nurse Practitioner Family
DX: G44.89 Other headache syndrome (principal); G93.5 Compression of brain; R42 Dizziness and giddiness; G60.8 Other hereditary and idiopathic neuropathies
CPT/HCPCS: 99214

== ENCOUNTER 2025-06-24 09:20 | Outpatient (REF) | payer OTHER, SELFPAY ==
--- NOTE | ~2025-06-24 | FL_ITS ---
EXAMINATION: XR BARIUM SWALLOW CLINICAL INFORMATION: Gastroesophageal reflux disease without esophagitis COMPARISON: CT chest with IV contrast 08/28/2024 TECHNIQUE: Routine barium swallow with thick barium and barium coated saltine crackers in upright view and thin barium in prone lying position was performed. FINDINGS: Lateral administration of thick barium in upright view there is normal propagation bolus from the oral cavity through the pharynx, esophagus into stomach without obstruction, narrowing or stricture. No laryngeal penetration or aspiration seen. No intraluminal filling defect or extrinsic compression seen. On oral administration of barium coated saltine crackers is normal oral mastication propagation of bolus from the oral cavity through the pharynx, esophagus into the distal esophagus. Thin barium was administered to clear the esophagus as patient felt there was dryness. On oral administration of thin barium in prone lying position there is good distention of entire esophagus without intraluminal filling defect or extrinsic compression. On placing patient supine and prone lying is a small sliding hiatal hernia with minimal gastroesophageal reflux. FLUOROSCOPY TIME: 3 minutes. DOSE AREA PRODUCT: 1253 uGy-m2 (microgray-meter squared) FL/FL barium swallow IMPRESSION: Unremarkable examination. Small sliding hiatal hernia with minimal gastroesophageal reflux. Electronically signed by: Ferdinand Mauro MD 06/24/2025 04:33 PM EDT
--- OUTSIDE RECORDS SUMMARY | 2025-06-24 10:30 | XMS_ITS | Clinical Summary ---
Author Organization [facility] Address [address] [place] [address] Phone Care Team Providers Care Manager Engagement Name Role Phone Lydia Yadav MD Unavailable [phone] María Pierson MD Primary Care Provid er Allergies Active Allergy Reactions Criticality Noted Date Comments Cyclobenzaprine Mental Status Change 05/25/2019 Penicillins 05/21/2019 Upset stomach; headache Medications loratadine (CLARITIN) 10 mg tablet Take 10 mg by mouth daily. Active estradiol (ESTRACE) 0.5 MG tablet Take 0.5 mg by mouth daily. Active dextroamphetami ne-amphetamine (ADDERALL) 30 mg Tab tablet Take 30 mg by mouth daily. Active montelukast (SINGULAIR) 10 mg tablet Take 10 mg by mouth nightly at bedtime. Active clonazePAM (KLONOPIN) 1 MG tablet Take 1 mg by mouth nightly at bedtime as needed for anxiety. Active estradioL (ESTRACE) 0.01 % (0.1 mg/gram) vaginal cream Place 2 g vaginally 2 (two) times a week. Active levalbuterol (XOPENEX HFA) 45 mcg/actuation inhaler 1 puff as needed. 2 Active LINZESS 290 mcg Cap capsule TAKE 1 CAPSULE BY MOUTH DAILY. 90 capsule 3 3 Active Active Problems Problem Noted Date Diagnosed Date Varicose veins of bilateral lower extremities wi th pain 01/31/2018 Overview (07/14/2019): s/p L GSV ablation + 20 stab phlebotomies, Dr. Hernandez, [facility] Chronic fatigue syndrome 10/17/2011 Overview (05/21/2019): Dx 05/21/2019 Post viral syndrome Raynaud's syndrome Malaise and fatigue History of Mikaela-Hess virus infection GERD (gastroesophageal reflux disease) Adult attention deficit disorder Asthma Seasonal allergic rhinitis Secondary fibromyalgia Family History Medical History Relation Comments Chronic fatigue Daughter Fibromyalgia Daughter Heart attack Father Heart failure Father Cause of Premature CHD Father First [place] age 45 Bladder Cancer Mother Cause of Breast cancer Mother lumpectomy, radi ation, tamoxifen Heart attack Mother Hypertension Mother Hypothyroidism Mother Hypothyroidism Sister 1 Obesity Sister 1 Hyperlipidemia Sister 2 Myopathy Son 1 Myotonia congeni ta No Known Problems Son 2 Relation Status Comments Daughter Alive Father (Age 87) Mother (Age 81) Sister 1 Alive Sister 2 Alive Son 1 Alive Son 2 Alive Social History Tobacco Use Types Packs/Day Years Used Date Smoking Tobacco: Former Cigarettes 0.5 24 0 03/17/1978 - 10/17/1989 Smokeless Tobacco: Never Comments:Maybe a half a pack a day Alcohol Use Standard Drinks/Week Comments Yes 1 (1 standard drink = 0.6 oz pure alcohol) Lately, making me sick. I have a beer ocassionally Education Answer Date Recorded Are you interested in more education? Not on isael e 02/11/2023 Are you concerned about learning? Not on file 02/11/2023 No 02/11/2023 No 02/11/2023 Digital Access Answer Date Recorded No 03/12/2023 No 03/12/2023 Reliable internet access at home? Not on file 03/12/2023 Device with a working camera? Not on file Education Answer Date Recorded What is the highest level of school you have completed or the highest degree you have received? 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 Not on file Not on isael e Last Filed Vital Signs Vital Sign Reading Time Taken Comments Blood Pressure 127/79 02/23/2022 3:08 PM EDT Pulse 73 02/23/2022 3:08 PM EDT Temperature 36.3 C (97.4 F) 02/23/2022 3:08 PM EDT Respiratory Rate 20 01/14/2022 5:03 PM EDT Oxygen Saturation 100% 02/23/2022 3:08 PM EDT Inhaled Oxygen Concentration - - Weight 70.3 kg (155 lb) 02/23/2022 3:08 PM EDT Height 162.6 cm (5' 4 ) 02/23/2022 3:08 PM EDT Body Mass Index 26.61 02/23/2022 3:08 PM EDT Plan of Treatment Health Maintenance Due Date Last Done Comments LIPID PANEL 1960 DEPRESSION SCREENING 1974 SMOKING Hx and SMOKELESS TOBACCO SCREENING 1975 HEPATITIS C SCREENING 02/09/1980 HIV ONE-TIME SCREENING (18-65 YEARS) 02/09/1980 MAMMOGRAM 2002 COLOGUARD 2007 FIT TEST 2007 FOBT 2007 SIGMOIDOSCOPY 2007 VIRTUAL COLONOSCOPY 2007 PNEUMOCOCCAL VACCINES (50+ years) (2 of 2 - PCV) 12/16/2020 12/17/2019 RSV VACCINE (1 - Risk 60-74 years 1-dose series) 2022 INFLUENZA VACCINE (#1) 2025 , 08/02/2020, 08/02/2020, Additional history exists COVID-19 VACCINE ( season) 2025 07/17/2021, 01/15/2021, 12/25/2020 COLONOSCOPY 08/18/2031 08/18/2021 COLORECTAL CANCER SCREENING 08/18/2031 Adult Td,Tdap Booster 12/24/2031 12/23/2021 ZOSTER VACCINES Completed 10/14/2020, 08/02/2020 HEPATITIS A VACCINES Aged Out No long er eligible based on patient's age to complete this topic HIB VACCINES Aged Out No longer eligi ble based on patient's age to complete this topic MENINGOCOCCAL VACCINES (ACWY) Aged Out No longer eligible based on patient's age to complete this topic MENINGOCOCCAL VACCINES (B) Aged Out N o longer eligible based on patient's age to complete this topic Medical Devices Implanted Type Area Internet Marketing Specialist Device Identifier Shelf Expiration Date Model / Serial / Lot Clip Description:Breast marker un sure of side per patient. Procedures Procedure Name Priority Date/Time Associated Diagnosis Comments ENDOSCOPY, COLON 08/18/2021 1:38 PM EDT from Last 3 Months or Most Recently Relevant to Health Maintenance Results * ENDOSCOPY, COLON (08/18/2021 1:38 PM EDT) 08/18/2021 1:38 PM EDT Narrative Transcriptions Celeste Davies MD, MPH - 08/18/2021 1:38 PM EDT [facility] Gastrointestinal Endoscopy [facility] Patient Name: Tressa Felder Exam Date: 08/18/2021 1:38 PM Date of : 1960 Admit Type: Outpatient Age: 61 Room: [place] [address] Gender: Female Note Status: Finalized Attending MD: Celeste Davies MD Procedure: Colonoscopy Indications: Chronic diarrhea Providers: Celeste Davies MD Referring MD: Hector Amos (Referring MD) Medicines: Monitored Anesthesia Care Complications: No immediate complications. Procedure: After obtaining informed consent, the endoscope was passed under direct vision. Throughout the procedure, the patient's blood pressure, pulse, and oxygen saturations were monitored continuously. The was introduced through the anus and advanced to the the terminal ileum, with identification of the appendiceal orifice and IC valve. The colonoscopy was unusually difficult due to a redundant colon and significant looping. Successful completion of the procedure was aided by changing the patient to a supine position and applying abdominal pressure. The patient tolerated the procedure well. The quality of the bowel preparation was evaluated using the BBPS (Galvin Bowel Preparation Scale) with scores of: Right Colon = 3, Transverse Colon = 3 and Left Colon = 3 (entire mucosa seen well with no residual staining, small fragments of stool or opaque liquid). The total BBPS score equals 9. Total procedure time was 70 minutes. Findings: The terminal ileum appeared normal. The colon (entire examined portion) appeared normal. Biopsies for histology were taken with a cold forceps from the ascending colon and right transverse colon for evaluation of microscopic colitis. Internal hemorrhoids were found during retroflexion. The hemorrhoids were small. Impression: - The examined portion of the ileum was normal. - The entire examined colon is normal. Biopsied. - Internal hemorrhoids. Recommendation: -Based on pathology -Future colonoscopies also with MAC, consider C2 Attending Participation: I personally performed the entire procedure. Celeste Davies MD, [id number] 08/18/2021 2:52:19 PM The attending physician was present throughout the entire procedure. Number of Addenda: 0 Note Initiated On: 08/18/2021 1:38 PM Hector Amos MD GI PROCEDURE ORDERABLES F inal Result from Last 3 Months or Most Recently Relevant to Health Maintenance [facility] TOTAL CHOICE INDEMNITY [employer] TOTAL CHOICE [place]DE[place] [address] [place] [id number] [address] [place] [place] [address] [place], [place] [address] [facility] TOTAL CHOICE [address]DE[address] [place], [place] [address] [facility] TOTAL CHOICE INDEMN[place] [address] TOTAL CHOICE INDEMNITY [employer] [facility] TOTAL CHOICE INDEMNITY [address] [place], [place] [address] [facility] TOTAL CHOICE INDEMNITY Care Teams Manager Engagement Relationship Specialty Start Date End Date María Pierson MD [address] [place] [address] PCP - General Internal Medicine 11/05/21 Lydia Yadav MD [address] [place] [address] [email or web address] Internal Medicine 07/07/21 Additional Source Comments The information contained in this document represents components of the legal health record. It is not the complete legal health record.[facility]
--- OUTSIDE RECORDS SUMMARY | 2025-06-24 10:30 | XMS_ITS | Encounter Summary ---
Author Organization [facility] Address [address] [place] [address] Phone Care Team Providers Care Filter Washer Name Role Phone Hector Amos MD Primary Care Provider [phone] Lydia Yadav MD Unavailable [phone] María Pierson MD Primary Care Provid er Encounter Details Date Type Department Care Team (Late st Contact Info) Description 07/14/2021 Procedure Pass [facility], Ct Scan - [address] [address] Social History Tobacco Use Types Packs/Day Years Used Date Smoking Tobacco: Former Cigarettes 0.5 24 0 03/17/1978 - 2002 Smokeless Tobacco: Never Alcohol Use Standard Drinks/Week Comments Yes 0 (1 standard drink = 0.6 oz pur e alcohol) Education Answer Date Recorded What is the highest level of school you have completed or the highest degree you have received? 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 Not on file Not on isael e documented as of this encounter Plan of Treatment Not on file documented as of this encounter Visit Diagnoses Not on filedocumented in this encounter Care Teams Filter Washer Relationship Specialty Start Date End Date Hector Amos MD [address] [place] [address] PCP - General Internal Medicine 07/07/21 11/04/21 María Pierson MD [address] [place] [address] PCP - General Internal Medicine 11/05/21 Lydia Yadav MD [address] [place] [address] [email or web address] Internal Medicine 07/07/21 documented as of this encounter Additional Source Comments The information contained in this document represents components of the legal health record. It is not the complete legal health record.[facility]
--- OUTSIDE RECORDS SUMMARY | 2025-06-24 10:30 | XMS_ITS | Clinical Summary ---
Author Organization [facility] Address [address] [place] [address] Phone Care Team Providers Care Spool Sander Name Role Phone Yue Alegria NP Primary Care Provider [phone] Social History Tobacco Use Types Packs/Day Years [...] Panel) 09/15/2022 Colorectal Cancer Screening: Colonoscopy 09/15/2022 HIV Screening 09/15/2022 Hepatitis C Screening 09/15/2022 Social Influencers of Health Screening 09/15/2022 Depression Screening 10/17/2024 Influenza Vaccine (#1) 2025 4, 07/21/2023, 07/25/2022, [...] patient's age to complete this topic Insurance [facility] Care Teams Spool Sander Relationship Specialty Start Date End Date Yue Alegria NP [address] [place] [address] PCP - General Nurse Practitioner 08/28/24
--- OUTSIDE RECORDS SUMMARY | 2025-06-24 10:30 | XMS_ITS | Encounter Summary ---
Author Organization [facility] Address [address] [place] [address] Phone Care Team Providers Care Shake Maker Name Role Phone Hector Amos MD Primary Care Provider [phone] Lydia Yadav MD Unavailable [phone] María Pierson MD Primary Care Provid er Encounter Details Date Type Department Care Team (Late st Contact Info) Description 08/18/2021 Procedure Pass [facility] [address] [place] [address] Social History Tobacco Use Types Packs/Day Years Used Date Smoking Tobacco: Former Cigarettes 0.5 24 0 03/17/1978 - 10/17/1989 Smokeless Tobacco: Never Comments:Maybe a half a pack a day Alcohol Use Standard Drinks/Week Comments Yes 1 (1 standard drink = 0.6 oz pure alcohol) Lately, making me sick. I have a beer ocassionally Education Answer Date Recorded What is the highest level of school you have completed or the highest degree you have received? 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 Not on isael e documented as of this encounter Plan of Treatment Not on file documented as of this encounter Visit Diagnoses Not on filedocumented in this encounter Care Teams Shake Maker Relationship Specialty Start Date End Date Hector Amos MD [address] [place] [address] PCP - General Internal Medicine 07/07/21 11/04/21 María Pierson MD [address] [place] [address] PCP - General Internal Medicine 11/05/21 Lydia Yadav MD [address] [place] [address] [email or web address] Internal Medicine 07/07/21 documented as of this encounter Additional Source Comments The information contained in this document represents components of the legal health record. It is not the complete legal health record.[facility]
--- OUTSIDE RECORDS SUMMARY | 2025-06-24 10:30 | XMS_ITS | Encounter Summary ---
Author Organization [facility] Address [address] [place] [address] Phone Care Team Providers Care Cottrell Operator Name Role Phone Lydia Yadav MD Unavailable [phone] María Pierson MD Primary Care Provid er Encounter Details Date Type Department Care Team (Late st Contact Info) Description 01/14/2022 Procedure Pass [facility] [address] [facility], 4th [place] [address] Social History Tobacco Use Types Packs/Day Years [...] Master's degree (e.g., DEVORA, MS, [place], MEd, ILLUMINATOR, KETAN) 07/21/2019 Comments No Sex and Gender Information Value Date Recorded Sex Assigned at Female 07/11/2021 10:09 AM EDT Legal Sex Female 9:46 PM EDT Gender Identity Not on file Sexual Orientation Straight 07/11/2021 10 :09 AM EDT 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 Not on siael e documented as of this encounter Plan of Treatment Not on file documented as of this encounter Visit Diagnoses Not on filedocumented in this encounter Care Teams Cottrell Operator Relationship Specialty Start Date End Date María Pierson MD [address] [place] [address] PCP - General Internal Medicine 11/05/21 Lydia Yadav MD [address] [place] [id number] [email or web address] Internal Medicine 07/07/21 documented as of this encounter Additional Source Comments The information contained in this document represents components of the legal health record. It is not the complete legal health record.[facility]
== END 2025-06-24 09:21 | disposition home or self-care (01) ==
LOC: HO.XRAY 09:20
PROVIDERS: PCP Nurse Practitioner Primary Care; Visit Provider Internal Medicine
DX: K21.9 Gastro-esophageal reflux disease without esophagitis (principal)
CPT/HCPCS: 74220

== ENCOUNTER → 2025-06-24 09:23 | Outpatient (BNV) | payer OTHER, SELFPAY | PROVIDERS: PCP Nurse Practitioner Primary Care; Visit Provider Radiology Diagnostic Radiology | DX: K44.9 Diaphragmatic hernia without obstruction or gangrene (principal) | CPT/HCPCS: 74246 ==

== ENCOUNTER 2025-07-01 10:50 | Outpatient (AMB) | payer OTHER, SELFPAY ==
--- NOTE | 2025-07-01 10:51 | A.OFFVIS_ITS ---
Intake Visit Reasons: Teli, Gerd, B. Swallow results Intake Note: Tressa presents in the office as a telehealth video to go over BA swallow results - states she is not having any other concerns other than her reflux. Allergies cyclobenzaprine Allergy (Intermediate, Verified 07/01/25 10:51) mental status change Penicillins Allergy (Intermediate, Verified 07/01/25 10:51) upset stomach, headaches enviromental Allergy (Mild, Uncoded 07/01/25 10:51) mental status chage HPI Comments Details: 65 y.o F with PMH of chiari I malformation, intermittent asthma, who is her for reflux sx and bloating. Report retrosternal burning at least once a month that lasts a few days assoc with nausea, bloating, belching. No odynophagia, dysphagia abd pain. No change in bowel habits. Has 4 BMs per week. Stool ranges from soft to hard. Manages reflux with just avoiding dietary triggers. Avoids any antacids due to fear of upsetting her stomach. Reports gets GI upset easily from meds. Diet: balanced. Good amount of fiber, healthy fats. Last colo 2020 [place] [facility] [place] not [place] interval. 07/01/25: Here for telehealth follow up. Doing well. Has to take famotidine once every 2-3 weeks. No issues with swallowing, nausea, appetite. Overall GI sx are well controlled. She is currently being evaluated for possible SVT and will be seeing a race and sports book writer soon. [facility] [place]: EGD 2020 and 2021 reviewed. No BE, no gastritis, no celiac. Of note colo 2020 was noted to be unusually difficult . 70 mins procedure time but completed to T.I. BBPS 9. No polyps. Bx NEG for microscopic colitis. [facility] Medical History Fibromuscular dysplasia Carotid stenosis MVP (mitral valve prolapse) Chronic headaches Neck pain Short of breath on exertion Chest pain History of squamous cell carcinoma ADHD TMJ (dislocation of temporomandibular joint) Fibromyalgia Mild asthma JAISON (generalized anxiety disorder) Chronic GERD Surgical History H/O colonoscopy History of squamous cell carcinoma History of partial hysterectomy History of tubal ligation Family History Father Heart attack Hypercholesteremia Hypertension CHF (congestive heart failure) Mother Hypothyroidism Heart attack Tuberculosis Bladder cancer Breast cancer Pleurisy Sister Hypothyroidism Hypercholesteremia Spinal stenosis Arthritis Asthma Brother Hyperthyroidism Hypertension Hypercholesteremia Sister Hypercholesteremia Daughter Hypertension Hypercholesteremia ADHD Anxiety Myotonia congenita Son Myotonia congenita Son Myotonia congenita Social History Housing: House Alcohol intake: current Alcohol intake frequency: a few times a month Patient Tobacco Use Status: Former Tobacco user Tobacco use type: Cigarette Cigarette Packs Per Day: 0.5 Years Smoked: 10 e-Cigarette/Vaping Use: Never Used Second Hand Smoke Exposure: No service: No Current occupational status: retired Cognitive needs: No Hearing needs: No Vision needs: Yes Physical Exam Exam Exam: televisit Telehealth Telehealth Telehealth Platform: Telephone Location of provider rendering services: practice address Location of patient: address on file Patient Identification confirmed using: Name, : Yes Telehealth method: voice only Patient verbally consented to treatment: Yes Patient verbally consented to billing insurance company: Yes Patient informed of any privacy concerns related to visit: Yes Minutes spent on Phone/Video with Pt.: 13 Assessment & Plan Assessment & Plan (1) GERD (gastroesophageal reflux disease): Code(s): K21.9 - Gastro-esophageal reflux disease without esophagitis Category: Medical (2) Encounter for colorectal cancer screening: Code(s): Z12.11 - Encounter for screening for malignant neoplasm of colon; Z12.12 - Encounter for screening for malignant neoplasm of rectum Category: Medical Plan GERD is well controlled. Continue avoidance of dietary triggers. No change in pharmacotherapy at this point. Patient without any polyps in 2020. Next colonoscopy due in 2030. P.r.n. follow-up in the meantime Coding Level of Care Code Est Pt Level 3 (75187) Diagnoses GERD (gastroesophageal reflux disease) K21.9 Encounter for colorectal cancer screening Z12.11; Z12.12
--- OUTSIDE RECORDS SUMMARY | 2025-07-01 14:23 | XMS_ITS | Encounter Summary ---
Author Organization [facility] Address [address] [place] [address] Phone Care Team Providers Care Foreign Language Stenographer Name Role Phone Hector Amos MD Primary Care Provider [phone] Lydia Yadav MD Unavailable [phone] María Pierson MD Primary Care Provid er Encounter Details Date Type Department Care Team (Late st Contact Info) Description 07/14/2021 Procedure Pass [facility], Ct Scan - [address] [address] Social History Tobacco Use Types Packs/Day Years [...] Master's degree (e.g., DEVORA, , [place], MEd, FOOD SELECTOR, KETAN) 07/21/2019 Comments Unknown Sex and Gender Information Value Date Recorded Sex Assigned at Female 07/11/2021 10:09 AM EDT Legal Sex Female 9:46 PM EDT Gender Identity Not on file Sexual Orientation Straight 07/11/2021 10 :09 AM EDT 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 Not on isael e documented as of this encounter Plan of Treatment Not on file documented as of this encounter Visit Diagnoses Not on filedocumented in this encounter Care Teams Foreign Language Stenographer Relationship Specialty Start Date End Date Hector Amos MD [address] [place] [address] PCP - General Internal Medicine 07/07/21 11/04/21 María Pierson MD [address] [place] [address] PCP - General Internal Medicine 11/05/21 Lydia Yadav MD [address] [place] [phone] [email or web address] Internal Medicine 07/07/21 documented as of this encounter Additional Source Comments The information contained in this document represents components of the legal health record. It is not the complete legal health record.[facility]
--- OUTSIDE RECORDS SUMMARY | 2025-07-01 14:23 | XMS_ITS | Clinical Summary ---
Author Organization [facility] Address [address] [place] [phone] Phone Care Team Providers Care Social Service Assistant Name Role Phone Lydia Yadav MD Unavailable [phone] María Pierson MD Primary Care Provid [...] ablation + 20 stab phlebotomies, Dr. Hernandez, [facility] Chronic fatigue syndrome 10/17/2011 Overview (05/21/2019): Dx 05/21/2019 Post viral syndrome Raynaud's syndrome Malaise and fatigue History of Mikaela-Hess virus infection GERD (gastroesophageal reflux disease) Adult attention deficit disorder Asthma Seasonal allergic rhinitis Secondary fibromyalgia Family History Medical History Relation Comments Chronic fatigue Daughter Fibromyalgia Daughter Heart attack Father Heart failure Father Cause of Premature CHD Father First IN age 45 Bladder Cancer Mother Cause of [...] Master's degree (e.g., MA, MS, [place], MEd, MORTGAGE PROCESSOR, KETAN) 07/21/2019 Comments No Sex and Gender Information Value Date Recorded Sex Assigned at Female 07/11/2021 10:09 AM EDT Legal Sex Female 9:46 PM EDT Gender Identity Not on file Sexual Orientation Straight 07/11/2021 10 :09 AM EDT 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 Celeste Davies MD, [id number] 08/18/2021 2:52:19 PM The attending physician was present throughout the entire procedure. Number of Addenda: 0 Note Initiated On: 08/18/2021 1:38 PM Hector Amos MD GI PROCEDURE ORDERABLES F inal Result from Last 3 Months or Most Recently Relevant to Health Maintenance [facility] TOTAL [facility]DE[facility] TOTAL CHOICE [place]DE[place] [address] [place] [address] [address] [place] [place] [address] [place] [address] [facility] TOTAL CHOICE [address]DEMN[address] [place] [address] [facility] TOTAL CHOICE [place]DE[place] [address] [place] [address] TOTAL CHOICE INDEMNITY [employer] [facility] TOTAL CHOICE [address]DE[address]ITY [address] [place], [place] [address] [facility] TOTAL CHOICE INDEMNITY Care Teams Social Service Assistant Relationship Specialty Start Date End Date María Pierson MD [address] [place] [id number] PCP - General Internal Medicine 11/05/21 Lydia Yadav MD [address] [place] [id number] [email or web address] Internal Medicine 07/07/21 Additional Source Comments The information contained in this document represents components of the legal health record. It is not the complete legal health record.[facility]
--- OUTSIDE RECORDS SUMMARY | 2025-07-01 14:23 | XMS_ITS | Encounter Summary ---
Author Organization [facility] Address [address] [place] [address] Phone Care Team Providers Care Parts Interpreter Name Role Phone Hector Amos MD Primary Care Provider [phone] Lydia Yadav MD Unavailable [phone] María Pierson MD Primary Care Provid er Encounter Details Date Type Department Care Team (Late st Contact Info) Description 08/18/2021 Procedure Pass [facility] [address] [place] [address] Social History Tobacco Use Types Packs/Day Years [...] Master's degree (e.g., [place], MS, [place], MEd, AD SETTER, KETAN) 07/21/2019 Comments No Sex and Gender Information Value Date Recorded Sex Assigned at Female 07/11/2021 10:09 AM EDT Legal Sex Female 9:46 PM EDT Gender Identity Not on file Sexual Orientation Straight 07/11/2021 10 :09 AM EDT 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 Not on file Not on isael e documented as of this encounter Plan of Treatment Not on file documented as of this encounter Visit Diagnoses Not on filedocumented in this encounter Care Teams Parts Interpreter Relationship Specialty Start Date End Date Hector Amos MD [address] [place] [address] PCP - General Internal Medicine 07/07/21 11/04/21 María Pierson MD [address] [place] [phone] PCP - General Internal Medicine 11/05/21 Lydia Yadav MD [address] [place] [address] [email or web address] Internal Medicine 07/07/21 documented as of this encounter Additional Source Comments The information contained in this document represents components of the legal health record. It is not the complete legal health record.[facility]
--- OUTSIDE RECORDS SUMMARY | 2025-07-01 14:23 | XMS_ITS | Clinical Summary ---
Author Organization [facility] Address [address] [place] [address] Phone Care Team Providers Care Dispatcher Service Chief Name Role Phone Yue Alegria NP Primary Care Provider [phone] Social History Tobacco Use Types Packs/Day Years [...] patient's age to complete this topic Insurance [facility] Care Teams Dispatcher Service Chief Relationship Specialty Start Date End Date Yue Alegria NP [address] [place] [address] PCP - General Nurse Practitioner 08/28/24
--- OUTSIDE RECORDS SUMMARY | 2025-07-01 14:23 | XMS_ITS | Encounter Summary ---
Author Organization [facility] Address [email or web address] [place] [address] Phone Care Team Providers Care Apron Trimmer Name Role Phone Lydia Yadav MD Unavailable [phone] María Pierson MD Primary Care Provid er Encounter Details Date Type Department Care Team (Late st Contact Info) Description 01/14/2022 Procedure Pass [facility] ENDO DEPT [address] [facility], 4th [place] [address] Social History Tobacco Use Types Packs/Day Years [...] Master's degree (e.g., DEVORA, MS, [place], MEd, TILLER MAN, KETAN) 07/21/2019 Comments No Sex and Gender Information Value Date Recorded Sex Assigned at Female 07/11/2021 10:09 AM EDT Legal Sex Female 9:46 PM EDT Gender Identity Not on file Sexual Orientation Straight 07/11/2021 10 :09 AM EDT 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 Not on isael e documented as of this encounter Plan of Treatment Not on file documented as of this encounter Visit Diagnoses Not on filedocumented in this encounter Care Teams Apron Trimmer Relationship Specialty Start Date End Date María Pierson MD [address] [place] [address] PCP - General Internal Medicine 11/05/21 Lydia Yadav MD [address] [place] [phone] [email or web address] Internal Medicine 07/07/21 documented as of this encounter Additional Source Comments The information contained in this document represents components of the legal health record. It is not the complete legal health record.[facility]
== END 2025-07-01 16:48 | disposition home or self-care (01) ==
LOC: HO.HGI 10:50
PROVIDERS: PCP Nurse Practitioner Primary Care; Visit Provider Internal Medicine
DX: K21.9 Gastro-esophageal reflux disease without esophagitis (principal)
CPT/HCPCS: 99213